=== PATIENT | female | born 1970 | race Caucasian/White ===

== ENCOUNTER 2023-10-03 06:02 | Day surgery (SDC) | payer OTHER, SELFPAY ==
[2023-10-03] VITALS (14 sets, daily range): BP systolic 103–162; BP diastolic 59–88; PULSE 94–101; RESP 14–16; TEMP 36.1–36.3; O2SAT 90–96; BMI 36.3
[2023-10-03] MEDS: MIDAZOLAM HCL 1 MG/ML inj IVP (06:06)
[2023-10-03] MEDS: fentaNYL 100 MCG/2 ML inj IVP (06:06)
[2023-10-03] MEDS: LACTATED RINGERS 1000 ML 1,000 ML 100 ML IV ×2 (07:06→09:00)
[2023-10-03] MEDS: SODIUM CHLORIDE 0.9 % (FLUSH) 10 ML SYRINGE IVF (07:06)
--- NOTE | 2023-10-03 07:12 | W.PM.H&PU ---
History & Physical Update History & Physical Update H&P Reviewed and patient assessed: No changes noted
--- NOTE | 2023-10-03 07:25 | W.PM.NB ---
Nerve Block Nerve Block Time Seen by Provider: 07:20 Date Seen: 10/03/23 Type of block requested by surgeon for post-operative analgesia: popliteal Side: right Time out performed: Yes Verification of patient name: Yes Verification of date of : Yes Site marking: site marked Name of person performing procedure: Mario Continuous monitoring Was continuous monitoring of O2 sat, B/P, quality control industrial engineer, recorded every 15 minutes?: Yes Procedure Checklist: sterile prep, needles and gloves Ultrasound guided. Images saved: Yes Medications given in 5ml increments after negative aspiration: Ropivicaine %: 0.5 mL: 20 Needle gauge: 22 Patient tolerated procedure well: Yes Additional comments: Needle noted adjacent to nerve Block Charges Block Charge (with Pro Fee): Sciatic Nerve Use of Ultrasound Machine for Block: Yes- US Guidance/pain block
--- NOTE | 2023-10-03 07:26 | W.PM.NB ---
Nerve Block Nerve Block Time Seen by Provider: 07:20 Date Seen: 10/03/23 Type of block requested by surgeon for post-operative analgesia: adductor canal Side: right Time out performed: Yes Verification of patient name: Yes Verification of date of : Yes Site marking: site marked Name of person performing procedure: Mario Continuous monitoring Was continuous monitoring of O2 sat, B/P, nurse monitoring, recorded every 15 minutes?: Yes Procedure Checklist: sterile prep, needles and gloves Ultrasound guided. Images saved: Yes Medications given in 5ml increments after negative aspiration: Ropivicaine %: 0.5 mL: 20 Needle gauge: 20 Patient tolerated procedure well: Yes Additional comments: Needle noted adjacent to nerve Block Charges Block Charge (with Pro Fee): Femoral Nerve Use of Ultrasound Machine for Block: Yes- US Guidance/pain block
--- NOTE | 2023-10-03 07:26 | W.ANESCHARGE ---
Anesthesia Charges Start Date/Time Anesthesia Start Date: 10/03/23 Anesthesia Start Time: 07:33 Stop Date/Time Anesthesia Stop Date: 10/03/23 Anesthesia Stop Time: 10:19
--- NOTE | 2023-10-03 07:30 | XR_ITS ---
Patient: MARII GAR Facility:?[facility] Patient ID:?[id number] Site Patient ID:?[id number]. Site :?[id number] Study:?XRay-Extremity Right ANKLE-10/03/2023 9:25:12 AM Ordering Physician:DREW Final Report: Indication: ORIF Technique: 4 fluoroscopic images of the right ankle. Fluoroscopic time 24.6 seconds. IMPRESSION: Fluoroscopic guidance for open reduction internal fixation of fractures involving the medial malleolus and lateral malleolus. Fracture of the posterior malleolus again noted. Dictated by Jaime Felix MD @ 10/03/2023 11:00:28 AM Signed by:?Jaime Felix MD @10/03/2023 11:00:28 AM (Electronic Signature)
--- NOTE | 2023-10-03 07:33 | SUR.PREOP ---
TIME?OUT:?0717 PT/RN/MDA?VERIFICATION?OF?SURGICAL?SITE,?PROCEDURE,?AND?CONSENT OBTAINED?PRIOR?TO?INVASIVE?PROCEDURE.
[2023-10-03] MEDS: CEFAZOLIN 2 GM INJ IVP (07:50)
--- NOTE | 2023-10-03 09:41 | PM.ORPRC ---
Procedure Note Date of procedure: 10/03/23 Procedure: PREOPERATIVE DIAGNOSES: 1. Right trimalleolar ankle fracture, closed, displaced POSTOPERATIVE DIAGNOSES: 1. Right trimalleolar ankle fracture, closed, displaced NAME OF OPERATION: 1. Right bimalleolar ankle fracture open reduction internal fixation SURGEON: Kris Godwin MD RECREATION TECHNICIAN: Dena Huber P.A.-C.; An video production assistant was critical for this case to aide in patient positioning, leg manipulation, tissue retraction, closure, and splinting. ANESTHESIA: Spinal plus popliteal and adductor canal regional nerve blocks. EBL: 20 mL IMPLANTS: Arthrex 2.7 mm interfragmentary screw, a distal fibular locking plate with 2.7 distal locking and 3.5mm proximal nonlocking screws for lateral malleolus fixation; cannulated 4.0 mm partially threaded screws for medial malleolar fixation. TOURNIQUET: 70 minutes at 250 mmHg INDICATIONS: The patient is a pleasant 53-year-old female who sustained a right ankle injury in the last week following a ground level fall. Workup included x-rays, which revealed an unstable trimalleolar ankle fracture. Given the unstable nature of this injury, surgery was recommended to improve alignment and stablize the ankle. Prior to surgery, the risks and benefits of the procedure were discussed with the patient, all questions were answered, and informed consent was obtained. FINDINGS: Closed, displaced medial and lateral malleoli fractures. Small, mildly displaced posterior malleolus fracture that was anatomic reduced after fixation of the medial and lateral malleoli. Stable syndesmosis. PROCEDURE: Patient was seen preoperatively and operative site was marked. Regional nerve blocks was performed by anesthesia staff. The patient was then brought to the operating room, where spinal anesthesia provided. She was then placed supine on the operating table. The operative extremity was prepped and draped in the usual sterile fashion. 2 g IV Ancef was administered preoperatively for prophylaxis. A surgical time-out was performed confirming patient identity, surgical site, and surgical procedure. The operative extremity was elevated, exsanguinated, and the tourniquet was inflated. A longitudinal incision was made along the posterior border of the distal fibula. Incision was carried through the skin and subcutaneous tissues, while protecting any crossing neurologic structures. The fracture was encountered, and cleared of interposed periosteum and fracture hematoma. Fracture site was then thoroughly irrigated with normal saline. The fracture was reduced and temporarily held with reduction clamps. A 2.7 mm interfragmentary lag screw was drilled perpendicular across the fracture. Following compression with the screw, a distal fibular locking plate was placed on the lateral malleolus and temporally held BB tacks. Fluoroscopic images confirmed anatomic reduction of the distal fibula fracture with good placement of the plate. The plate was then secured distally with 2.7 mm locking screws and proximally with 3.5 mm nonlocking screws. Fluoroscopic imaging confirmed fracture reduction, appropriate plate position, and screw length. Attention was then directed to fixation of the medial malleolar fracture. A longitudinal incision was made overlying the medial malleolar fracture. Blunt dissection was utilized to dissect through the subcutaneous tissues to allow us to protect the crossing neurovascular structures. The fracture was identified and cleared of interposed periosteum and fracture hematoma. The fracture was reduced and held with a pointed reduction clamp. Two guide pins for the 4-0 cannulated screws were then drilled in a retrograde fashion across the fracture site. Fluoroscopic imaging confirmed anatomic reduction of the fracture and good placement of the pins. The pins were then overdrilled and partially-threaded 4.0 mm cannulated screws were secured into position over the pins. Guide pins were removed . Fluoroscopic imaging confirmed anatomic reduction with good compression and good placement of the screws. After confirming appropriate reduction and positioning of the plate and screws using fluoroscopic imaging, an external rotation stress was placed on the ankle to test for syndesmosis stability. These images confirmed a symmetric mortise with no widening of the syndesmosis. At this stage, the wounds were thoroughly irrigated with normal saline. Laterally , deep fascia was closed over the plate using 3-0 Vicryl [id number] interrupted sutures. The tourniquet was then released. Total tourniquet time was 78 minutes. Hemostasis was achieved electrocautery. Skin incisions were then closed with 3-0 Vicryl inverted interrupted subcutaneous stitches followed by running 3-0 nylon. Sterile dressings were applied and a well-padded short-leg splint was applied. The patient was awoken from anesthesia and transferred to the PACU in stable condition. PLAN: 1. Ice and elevation of operative extremity for pain and swelling. 2. Tylenol or Mose[place] as needed for pain. 3. Toe-touch weight-bearing operative extremity. 4. Keep splint clean and dry. 5. Follow up in Orthopedic Clinic in 10-14 days for wound check and splint removal.
--- NOTE | 2023-10-03 10:21 | W.ANESCHARGE ---
Anesthesia Charges Start Date/Time Anesthesia Start Date: 10/03/23 Anesthesia Start Time: 07:33 Stop Date/Time Anesthesia Stop Date: 10/03/23 Anesthesia Stop Time: 10:19
== END 2023-10-03 11:50 | disposition home or self-care (01) ==
PROVIDERS: Visit Provider Orthopaedic Surgery
PROC: (CPT 27814; principal; 2023-10-03 07:30)
DX: S82.851A Displaced trimalleolar fracture of right lower leg, initial encounter for closed fracture (principal); G89.18 Other acute postprocedural pain
CPT/HCPCS: 27814; 01480; 64445; 64447; 73610; 76000; 76942; 82962; C1713; J0690; J1100; J2250; J2371; J2405; J2704; J2795; J3010; J3490; J7120

== ENCOUNTER 2023-11-05 12:23 | Outpatient (CLI) | payer OTHER, SELFPAY ==
[2023-11-05 12:43] LABS: Basophils Percent Auto 0.2 % (0.0-3.0); Eosinophils Percent Auto 0.6 % (0.0-7.0); Hematocrit 44.6 % (33.0-51.0); Hemoglobin* 13.6 gm/dL (12.0-16.0); Immature Granulocytes Pct Auto 0.2 %; Lymphocytes Percent Auto 19.7 % (20-44); Mean Corpuscular HGB Conc 31 gm/dL (32-36); Mean Corpuscular Hemoglobin 25 pg (26-34); Mean Corpuscular Volume 83 fL (80-100); Monocytes Percent Auto 7.5 % (0.0-11.0); Neutrophils Percent Auto 71.8 % (42.0-72.0); Platelet Count* 425 K/uL (140-440); RDW Coefficient of Variation % 15.5 % (11.5-15.5); Red Blood Count 5.35 m/uL (4.00-5.20); White Blood Count* 18.44 K/uL (4.50-11.00)
[2023-11-05 12:51] LABS: Slide Review Reflex No
[2023-11-05 12:58] LABS: Chloride* 105 mmol/L (96-114); Potassium* 3.9 mmol/L (3.6-5.1); Sodium* 141 mmol/L (135-149)
[2023-11-05 13:00] LABS: Creatinine* 0.9 mg/dL (0.5-1.5); Estimated Glomerular Filt Rate 77 ml/min
[2023-11-05 13:01] LABS: Anion Gap 12 mEq/L (7-15); Blood Urea Nitrogen* 19 mg/dL (7-30); Calcium* 9.9 mg/dL (8.4-10.6); Carbon Dioxide* 24 mmol/L (20-32); Glucose* 181 mg/dL (60-115)
[2023-11-05 13:03] LABS: Hemoglobin A1C* 6.9 % (0-5.6)
[2023-11-05 13:12] LABS: C Reactive Protein* < 0.5 mg/dL (0.5-1.0)
[2023-11-05 13:42] LABS: Erythrocyte SedimentationRate* 34 mm/hr (2-20)
== END 2023-11-05 12:24 | disposition home or self-care (01) ==
LOC: LAB 12:25
PROVIDERS: Visit Provider Physician Assistant Surgical
DX: Z01.818 Encounter for other preprocedural examination (principal); L03.115 Cellulitis of right lower limb; I10 Essential (primary) hypertension; E78.00 Pure hypercholesterolemia, unspecified; E03.9 Hypothyroidism, unspecified; E11.9 Type 2 diabetes mellitus without complications
CPT/HCPCS: 36415; 80048; 83036; 85025; 85651; 86140

== ENCOUNTER 2023-11-06 10:05 | Day surgery (SDC) | payer OTHER, SELFPAY ==
[2023-11-06] VITALS (16 sets, daily range): BP systolic 105–152; BP diastolic 66–115; PULSE 83–102; RESP 14–16; TEMP 36.6–37; O2SAT 85–99; BMI 34.9
[2023-11-06] MEDS: LACTATED RINGERS 1000 ML 1,000 ML 100 ML IV (10:57)
[2023-11-06] MEDS: SODIUM CHLORIDE 0.9 % (FLUSH) 10 ML SYRINGE IVF (10:58)
--- NOTE | 2023-11-06 11:04 | SUR.OPER ---
PATIENT QUESTIONS ANSWERED SATISFACTORILY PREOPERATIVELY. PATIENT BROUGHT TO OR #2 PER CART. Patient positioned supine on OR #2 bed. The perioperative team supported arms bilaterally on arm boards. Final approval of positioning by surgeon.
--- NOTE | 2023-11-06 11:42 | W.PM.H&PU ---
History & Physical Update History & Physical Update H&P Reviewed and patient assessed: No changes noted
--- NOTE | 2023-11-06 11:43 | PM.ORPRC ---
Procedure Note Date of procedure: 11/06/23 Procedure: PREOPERATIVE DIAGNOSIS: 1. Right ankle postoperative wound infection POSTOPERATIVE DIAGNOSIS: 1. Right ankle postoperative wound infection PROCEDURE: 1. Right ankle irrigation and debridement SURGEON: Kris Godwin MD. MULTI MEDIA SPECIALIST: CITLALI Villalta - An assistant account manager was critical for this case to aid in patient positioning, tissue retraction, limb manipulation/positioning, and closure. ANESTHESIA: Spinal anesthetic IMPLANTS: None TOURNIQUET: 8 minutes at 250 mmHg ESTIMATED BLOOD LOSS: 10 mL COMPLICATIONS: None SPECIMENS: Subcutaneous wound swabs and subcutaneous soft tissue which were sent for Gram stain, anaerobic and aerobic cultures. INDICATIONS: The patient is a 53-year-old female with past medical history significant for diabetes who underwent right ankle open reduction internal fixation on 10/03/2023. She did well postoperatively until 3 days ago when she developed increasing right ankle pain and noticed some drainage from the lateral aspect of her ankle near the surgical incision. Pain was associated with increased swelling, warmth, and redness. She was seen in clinic yesterday, where symptoms were felt to be secondary to a postoperative wound infection. Recommendation was subsequently made for surgical intervention consisting of right ankle irrigation and debridement. FINDINGS: Small amount of purulent drainage from a sinus tract in the distal 3rd of the incision which communicated with the distal fibula plate. There was no obvious subcutaneous abscess and no tracking anterior, posterior, distal proximally. DESCRIPTION OF PROCEDURE: Following a thorough discussion of risks, benefits, and alternatives consent was obtained and the operative site was marked. The patient was brought to the operating room and spinal anesthesia was administered. She was then placed in supine position on the OR table. The operative permit he was prepped and draped in appropriate sterile fashion. Surgical time-out was performed confirming patient identity, surgical site, surgical procedure. An incision measuring approximately 4-5 cm centered over the small sinus tract was made using the previous surgical scar. Upon making the incision small bloody fluid collection was encountered. This was swabbed and sent for anaerobic and aerobic cultures. Due to bleeding that was encountered making incision, leg was elevated exsanguinated and tourniquet was inflated to 250 mmHg. Subcutaneous tissue samples adjacent to the lateral fibula plate were then obtained and sent for aerobic and anaerobic cultures. Skin edges at the sinus tract were sharply debrided using a 15 blade. Subcutaneous tissues were debrided using a small rongeur and curette. The wound was then irrigated with 3 L of normal saline using pulsatile lavage. Tourniquet was released, and hemostasis was achieved with electrocautery. Skin was then closed with 3-0 nylon simple interrupted sutures and sterile dressings were applied. Patient was then awoken from anesthesia and transferred to the PACU in stable condition. POSTOPERATIVE PLAN: 1. Touchdown weight-bearing with Cam boot right lower extremity. 2. Start Doxycycline 100 mg b.i.d. 3. [place] or Tylenol as needed for pain control 4. Ice and elevation for pain and swelling 5. Follow-up in Orthopedic Clinic in 1 week for wound check.
[2023-11-06] MEDS: CEFAZOLIN 2 GM INJ IVP (12:17)
[2023-11-06] MEDS: fentaNYL 100 MCG/2 ML inj 50 MCG IVP ×3 (13:11→13:34)
[2023-11-06] MEDS: ALBUTEROL SULFATE 2.5 MG/3 ML VIAL.NEB NEB (14:15)
--- NOTE | 2023-11-06 14:24 | W.ANESCHARGE ---
Anesthesia Charges Start Date/Time Anesthesia Start Date: 11/06/23 Anesthesia Start Time: 11:40 Stop Date/Time Anesthesia Stop Date: 11/06/23 Anesthesia Stop Time: 12:58
[2023-11-06] MEDS: HYDROCODONE-ACETAMIN 5-325 MG 1 TAB PO (14:30)
--- NOTE | 2023-11-06 15:12 | SUR.PHASEII ---
right lower extremity covered with dressing and woody wrap. c/d/i.
== END 2023-11-06 15:16 | disposition home or self-care (01) ==
PROVIDERS: Visit Provider Orthopaedic Surgery
PROC: (CPT 11042; principal; 2023-11-06 11:30)
DX: T81.41XA Infection following a procedure, superficial incisional surgical site, initial encounter (principal); E11.9 Type 2 diabetes mellitus without complications
CPT/HCPCS: 11042; 01470; 82962; 87070; 87075; 87186; 87205; 94640; A9270; J0690; J1100; J2250; J2405; J2704; J3010; J3490; J7120

== ENCOUNTER 2024-03-19 08:25 | Outpatient (CLI) | payer OTHER, SELFPAY ==
[2024-03-19 09:42] LABS: Creatinine* 0.7 mg/dL (0.5-1.5); Estimated Glomerular Filt Rate 104 ml/min
== END 2024-03-19 08:26 | disposition home or self-care (01) ==
PROVIDERS: Visit Provider Physician Assistant Surgical
DX: Z98.890 Other specified postprocedural states (principal); Z87.81 Personal history of (healed) traumatic fracture; Z09 Encounter for follow-up examination after completed treatment for conditions other than malignant neoplasm
CPT/HCPCS: 82565; 87070; 87075; 87186; 87205

== ENCOUNTER 2024-03-19 09:52 | Outpatient (CLI) | payer OTHER, SELFPAY ==
--- NOTE | 2024-03-19 10:00 | CRLHL7_ITS ---
For Patients: As a result of the Century Cures Act, medical imaging exams and procedure reports are released immediately into your electronic medical record. You may view this report before your referring provider. If you have questions, please contact your health care provider. Indication: 3 RECENT ANKLE SURGIES, R/O Abscess,INFECTION OR FLUID COLLECTIONS Technique: RIGHT ANKLE WITH ISOVUE 370 95CC CONTRAST Please note that all CT scans at this facility use dose modulation, iterative reconstruction, and/or weight-based dosing when appropriate to reduce radiation dose to as low as reasonably achievable. Comparison: Radiographs 12/02/2023, 10/03/2023 Findings: Chronic trimalleolar fracture deformity noted. Near complete bridging of the posterior malleolus fracture is present with some residual step-off at the tibiotalar articular surface measuring 1.1 millimeter. Near anatomic alignment of the fibular diaphyseal fracture with intact hardware. Residual fracture line is present. Healed medial malleolus fracture. Soft tissue swelling is present at the lateral and medial aspects of the ankle. No drainable fluid collection. No subcutaneous gas. The tendons appear intact. Impression: Chronic trimalleolar fracture of the ankle with incomplete osseous bridging across the distal fibular fracture and posterior malleolus fracture. Slight articular surface step-off at the posterior malleolus fracture. Hardware intact. Alignment near anatomic. Soft tissue swelling about the medial and lateral aspects of the ankle without drainable fluid collection, abscess or osteomyelitis. No synovitis. Please note that all CT scans at this facility use dose modulation, iterative reconstruction, and/or weight-based dosing when appropriate to reduce radiation dose to as low as reasonably achievable. Dictated by Jaime Felix MD @ 03/19/2024 12:14:14 PM (Electronically Signed)
== END 2024-03-19 09:53 | disposition home or self-care (01) ==
LOC: CT 09:55
PROVIDERS: Visit Provider Physician Assistant Surgical
DX: Z87.81 Personal history of (healed) traumatic fracture (principal); S82.851G Displaced trimalleolar fracture of right lower leg, subsequent encounter for closed fracture with delayed healing; Z98.890 Other specified postprocedural states
CPT/HCPCS: 73701; Q9967

== ENCOUNTER 2024-03-22 06:04 | Day surgery (SDC) | payer OTHER, SELFPAY ==
[2024-03-22] VITALS (14 sets, daily range): BP systolic 92–142; BP diastolic 62–105; PULSE 92–103; RESP 13–25; TEMP 36.2–37; O2SAT 90–97
[2024-03-22] MEDS: LACTATED RINGERS 1000 ML 1,000 ML 100 ML IV (06:40)
[2024-03-22] MEDS: INSULIN REGULAR, HUMAN 100 UNIT/ML VIAL 6 UNIT SUBCUT (06:45)
[2024-03-22] MEDS: CEFAZOLIN 2 GM INJ IVP (07:26)
--- NOTE | 2024-03-22 08:15 | PM.ORPRC ---
Procedure Note Date of procedure: 03/22/24 Procedure: PREOPERATIVE DIAGNOSIS: Infected, healed Right ankle Askew B trimalleolar fracture POSTOPERATIVE DIAGNOSIS: Infected, healed Right ankle Askew B trimalleolar fracture NAME OF OPERATION: Incision and drainage, hardware removal deep SURGEON: Jordan Hess MD PRISON CLASSIFICATION COUNSELOR: Annemarie Mccall PA-C ANESTHESIA: Spinal ESTIMATED BLOOD LOSS: 0 mL COMPLICATIONS: None SPECIMENS: Aerobic, anaerobic cultures x2, Gram stain x2 DRAINS: None PREOPERATIVE ANTIBIOTICS: Ancef 2 gram INDICATIONS: The patient is a 53-year-old female who sustained a right ankle fracture. This has healed, however she has developed a MSSA deep infection. She presents today for incision and drainage, hardware removal. The risks, benefits and expected outcomes were discussed in detail. These included but were not limited to: Infection, bleeding, injury to blood vessel or nerve, venous thromboembolism. All questions were answered to their satisfaction. Use of an anesthesiology physician assistant was necessary throughout the case for patient positioning and safety, soft tissue retraction and closure. PROCEDURE: The patient was placed supine on the operating room table. Spinal anesthesia was administered. The right lower extremity was prepped and draped in the usual sterile fashion. The limb was exsanguinated with the Maikel bandage. The pneumatic tourniquet was inflated to 300 mmHg. The previously placed longitudinal incision was made over the fibula. Subcutaneous dissection taken sharply to the fibula/plate which was subperiosteal exposed. The anesthesiology physician assistant was used to retract the soft tissues and protect them. Gross purulence was encountered. Two separate cultures were taken. The 2 most proximal screws were loose in the bone. The 3rd proximal cortical screw was removed as well. All 5 of the distal locking screws were removed. Finally, we expose the tip of the lag screw over the anterior aspect of the fibula. We were unable to find the head posteriorly. Therefore, we pulled it out of the bone from anteriorly. We then aggressively debrided the periosteum, bone and purulence on the surface of the fibula and in every screw hole with the curette, joker elevator and Randy rongeur. There was no evidence for osteomyelitis. The wound was irrigated with 3 L of normal saline via pulse lavage. It was closed with 3-0 nylon in an interrupted fashion. A soft dressing was applied. The tourniquet was released. Sponge and needle counts were correct x 2. The patient tolerated the procedure well. There were no apparent complications. They were carefully transferred to the hospital bed and taken to the postanesthesia care unit in satisfactory condition. PLAN: The patient will be discharged to home. They may weightbear as tolerates on the right lower extremity. They will continue to work on ice and elevation. They will follow up in the office next week for a wound check and three views of the ankle prior to being seen. Preop cultures have grown out pansensitive Staph aureus. We are planning 2 weeks of p.o. Keflex. She may need the wound clinic, depending on how her wound looks in the next 1-2 weeks.
--- NOTE | 2024-03-22 08:23 | SUR.OPER ---
THE SURGEON AND THE PA REMOVED ONE PLATE AND NINE SCREWS (ALL ARTHREX) FROM THE PATIENT'S RIGHT (LATERAL) ANKLE.
[2024-03-22] MEDS: fentaNYL 100 MCG/2 ML inj 50 MCG IVP ×2 (08:41→08:49)
--- NOTE | 2024-03-22 08:49 | W.ANESCHARGE ---
Anesthesia Charges Start Date/Time Anesthesia Start Date: 03/22/24 Anesthesia Start Time: 07:13 Stop Date/Time Anesthesia Stop Date: 03/22/24 Anesthesia Stop Time: 08:39
[2024-03-22] MEDS: HYDROmorphone 0.5 mg/0.5 ml inj IVP (08:57)
--- NOTE | 2024-03-22 09:14 | W.ANESCHARGE ---
Anesthesia Charges Start Date/Time Anesthesia Start Date: 03/22/24 Anesthesia Start Time: 07:13 Stop Date/Time Anesthesia Stop Date: 03/22/24 Anesthesia Stop Time: 08:39
--- NOTE | 2024-03-22 09:18 | SUR.PHASEI ---
patient met discharge criteria per anesthesia
[2024-03-22] MEDS: OxyCODONE/APAP 5-325 TABLET 2 TAB PO (09:28)
[2024-03-22] MEDS: INSULIN REGULAR, HUMAN 100 UNIT/ML VIAL SUBCUT (09:57)
== END 2024-03-22 10:25 | disposition home or self-care (01) ==
PROVIDERS: Visit Provider Orthopaedic Surgery
PROC: (CPT 11044; principal; 2024-03-22 07:15)
DX: T84.624A Infection and inflammatory reaction due to internal fixation device of right fibula, initial encounter (principal); B95.61 Methicillin susceptible Staphylococcus aureus infection as the cause of diseases classified elsewhere; E11.9 Type 2 diabetes mellitus without complications
CPT/HCPCS: 11044; 20680; 01480; 82962; 87070; 87075; 87186; 87205; A9270; J0690; J1100; J1170; J1815; J2250; J2371; J2405; J2704; J3010; J7120

== ENCOUNTER 2024-03-29 15:55 | Inpatient (IN) | payer OTHER, SELFPAY ==
[2024-03-29 16:19] VITALS: BP 86/62; PULSE 102; RESP 18; TEMP 36.9; O2SAT 93; BMI 35.6
[2024-03-29 16:45] VITALS: BP 108/58
[2024-03-29 17:49] LABS: Lactate* 1.7 mmol/L (0.5-1.9)
[2024-03-29 17:51] LABS: Basophils Absolute Auto 0.04 K/uL (0.00-0.30); Basophils Percent Auto 0.4 % (0.0-3.0); Eosinophils Absolute Auto 0.46 K/uL (0.00-0.50); Eosinophils Percent Auto 4.4 % (0.0-7.0); Hematocrit 36.3 % (33.0-51.0); Immature Granulocytes Abs Auto 0.06 K/uL (0.00-0.30); Immature Granulocytes Pct Auto 0.6 %; Lymphocytes Absolute Auto 3.82 K/uL (0.90-2.90); Lymphocytes Percent Auto 36.5 % (20-44); Mean Corpuscular HGB Conc 30 gm/dL (32-36); Mean Corpuscular Hemoglobin 24 pg (26-34); Mean Corpuscular Volume 78 fL (80-100); Monocytes Percent Auto 8.6 % (0.0-11.0); Neutrophils Absolute Auto 5.18 K/uL (1.7-7.0); Neutrophils Percent Auto 49.5 % (42.0-72.0); Platelet Count* 310 K/uL (140-440); RDW Coefficient of Variation % 15.5 % (11.5-15.5); Red Blood Count 4.63 m/uL (4.00-5.20); White Blood Count* 10.46 K/uL (4.50-11.00)
[2024-03-29 17:53] LABS: Slide Review Reflex No
--- NOTE | 2024-03-29 17:56 | CRLHL7_ITS ---
For Patients: As a result of the Cures Act, medical imaging exams and procedure reports are released immediately into your electronic medical record. You may view this report before your referring provider. If you have questions, please contact your health care provider. INDICATION: Sepsis. TECHNIQUE: Chest 2 views. COMPARISON: None. FINDINGS: Cardiovascular and mediastinum: Heart size and vasculature are normal in caliber and appearance. Lungs and pleural spaces: Lungs are clear. No sign of infiltrate or mass. No sign of pleural effusion. No pneumothorax. Bones and soft tissues: No significant findings. IMPRESSION: No acute or significant findings. Dictated by Ankit Gamino MD @ 03/29/2024 7:18:17 PM (Electronically Signed)
[2024-03-29] MEDS: INSULIN ASPART 100 UNIT/ML 12 UNIT SUBCUT (17:58)
[2024-03-29] MEDS: INSULIN ASPART 100 UNIT/ML SUBCUT (17:58)
[2024-03-29] MEDS: VANCOMYCIN 2 GM/400 ML 2 GM/400 ML PIGGYBACK IVPB (18:01)
[2024-03-29 18:06] LABS: Chloride* 105 mmol/L (96-114); Potassium* 4.2 mmol/L (3.6-5.1); Sodium* 136 mmol/L (135-149)
[2024-03-29 18:09] LABS: Creatinine* 0.9 mg/dL (0.5-1.5); Est. Creatinine Clearance* 71.11; Estimated Glomerular Filt Rate 77 ml/min
[2024-03-29 18:10] LABS: Anion Gap 8 mEq/L (7-15); Blood Urea Nitrogen* 15 mg/dL (7-30); Calcium* 8.7 mg/dL (8.4-10.6); Carbon Dioxide* 23 mmol/L (20-32); Glucose* 190 mg/dL (60-115)
[2024-03-29 18:13] LABS: C Reactive Protein* 1.3 mg/dL (0.5-1.0)
--- NOTE | 2024-03-29 18:24 | PM.IMHP1 ---
Hospitalist- H&P: HPI History of Present Illness Time Seen by Provider: 16:00 Date Seen: 03/29/24 Chief complaint: Direct Admit Narrative: Kelly Grijalva is a 53 year old female with coronary artery disease, COPD, poorly controlled diabetes mellitus type 2, hypertension, hypercholesterolemia, PTSD, anxiety who is admitted directly from home after being seen in the [facility] today. She had a right by malleolar ankle fracture on 10/03/2023 after tripping while taking the trash out. She underwent an ORIF at that time. She developed a postop infection and had irrigation and debridement debridement on 10/29/2023 and was treated with oral antibiotics. She had recurrent infection and underwent another I and D and hardware removal by Dr. Hess 03/22/2024. She has been on Keflex 4 times a day since then. She has had ongoing purulence drainage, but felt that it got even worse over the weekend and went to the [facility]. She was given Unasyn and followed up with Dr. Kris Godwin in his clinic today. He recommended direct admission to the hospital and initiation of IV antibiotics with a plan to go to the OR tomorrow for repeat irrigation and debridement. She has pain in that ankle for which she has been taking 1 tablet of Percocet 3 times a day. She denies any fevers or chills, but does endorse night sweats. Review of Systems Status of ROS: Reports: 10 or more systems reviewed and unremarkable except as noted in History and below [facility] Medical History (Updated 03/29/24 @ 22:13 by Louann Farmer MD) Thyroid nodule ?E04.1 - Nontoxic single thyroid nodule (ICD-10) Hypokalemia ?E87.6 - Hypokalemia (ICD-10) Hypomagnesemia ?E83.42 - Hypomagnesemia (ICD-10) Coronary artery disease ?I25.10 - Atherosclerotic heart disease of [place] coronary artery without angina pectoris (ICD-10) NSTEMI (non-ST elevated myocardial infarction) ?I21.4 - Non-ST elevation (NSTEMI) myocardial infarction (ICD-10) Vitamin D deficiency ?E55.9 - Vitamin D deficiency, unspecified (ICD-10) Nephrolithiasis ?N20.0 - Calculus of kidney (ICD-10) Menopause syndrome ?N95.1 - Menopausal and female climacteric states (ICD-10) Personality disorder, unspecified ?F60.9 - Personality disorder, unspecified (ICD-10) Drug-seeking behavior ?Z76.5 - Malingerer [conscious simulation] (ICD-10) Moderate recurrent major depression ?F33.1 - Major depressive disorder, recurrent, moderate (ICD-10) Gastritis ?K29.70 - Gastritis, unspecified, without bleeding (ICD-10) Panic disorder with agoraphobia ?F40.01 - Agoraphobia with panic disorder (ICD-10) Episodic cannabis use ?F12.90 - Cannabis use, unspecified, uncomplicated (ICD-10) Fatigue ?R53.83 - Other fatigue (ICD-10) High risk HPV infection ?B97.7 - Papillomavirus as the cause of diseases classified elsewhere (ICD-10) Severe dysplasia of cervix ?D06.9 - Carcinoma in situ of cervix, unspecified (ICD-10) Ankle fracture, bimalleolar, closed ?S82.843A - Displaced bimalleolar fracture of unspecified lower leg, initial encounter for closed fracture (ICD-10) Migraine headache ?G43.909 - Migraine, unspecified, not intractable, without status migrainosus (ICD-10) PTSD (post-traumatic stress disorder) ?F43.10 - Post-traumatic stress disorder, unspecified (ICD-10) Restless leg syndrome ?G25.81 - Restless legs syndrome (ICD-10) Anxiety ?F41.9 - Anxiety disorder, unspecified (ICD-10) Depression ?F32.A - Depression, unspecified (ICD-10) Elevated cholesterol ?E78.00 - Pure hypercholesterolemia, unspecified (ICD-10) COPD (chronic obstructive pulmonary disease) ?J44.9 - Chronic obstructive pulmonary disease, unspecified (ICD-10) Hypothyroid ?E03.9 - Hypothyroidism, unspecified (ICD-10) Hypertension ?I10 - Essential (primary) hypertension (ICD-10) Diabetes mellitus ?E11.9 - Type 2 diabetes mellitus without complications (ICD-10) Surgical History (Updated 03/29/24 @ 22:07 by Louann Farmer MD) H/O lithotripsy ?Z98.890 - Other specified postprocedural states (ICD-10) H/O coronary angiogram ?Z98.890 - Other specified postprocedural states (ICD-10) History of incision and drainage (11/06/23) ?Z98.890 - Other specified postprocedural states (ICD-10) Status post open reduction with internal fixation (ORIF) of fracture of ankle (10/03/23) ?Z98.890 - Other specified postprocedural states (ICD-10) ?Z87.81 - Personal history of (healed) traumatic fracture (ICD-10) H/O tubal ligation ?Z98.51 - Tubal ligation status (ICD-10) History of cholecystectomy ?Z90.49 - Acquired absence of other specified parts of digestive tract (ICD-10) H/O lumbar discectomy ?Z98.890 - Other specified postprocedural states (ICD-10) Family History (Updated 03/29/24 @ 16:29 by Louann Farmer MD) Mother Ovarian cancer, Onset Age: 39 Social History (Updated 03/29/24 @ 22:06 by Louann Farmer MD) Narrative: Not , 2 grown children, son is in prison in [place] [employer]. Sister and her best friend are helping her out around the house. Quit tob in sep 2023. Denies alcohol use. Smokes a joint once a night before bed. What is your current living situation?: I presently have a place to live Problems where you live: no known problems Problems where you live details: N/A In the past 12 months, utilities in danger of being shut off: no In past 12 months, lack of transportation kept you from medical appts, meetings, work, or getting things needed for daily living: no In the past 12 mos, have been you worried that your food would run out before you had money to buy more?: never true In the past 12 mos, the food you bought just didn't last and you didn't have money to buy more?: never true Highest level of school completed/degree received: GED or equivalent Smoking Status: Former smoker What tobacco products do you use: cigarettes Smoking packs per day: 0.5 Smoking cigarettes per day: 10.0 Years smoked: 15 Smoking pack-years: 7.50 Smoking quit date/years: <= 15 years ago Do you use any of these nicotine containing products: None How often do you have a drink containing alcohol: never AUDIT-C Alcohol total score: 0 Non-prescribed substance use: marijuana (any form) Non-prescribed substance use details: daily Caffeine: Yes (pop) How often does anyone, including family, friends and others, physically hurt you: never How often does anyone, including family, friends and others, insult or talk down to you: never How often does anyone, including family, friends and others, threaten you with harm: never How often does anyone, including family, friends and others, scream or curse at you: never Are you using contraception or practicing any form of control: No (tubes tied) service: No Meds Home Medications and Allergies Home Medications ?Medication ?Instructions ?Recorded ?Confirmed ?Type atorvastatin 80 mg tablet 80 mg PO HS 10/01/23 03/29/24 History fluoxetine 40 mg capsule 40 mg PO BID 10/01/23 03/29/24 History glimepiride 4 mg tablet 8 mg PO DAILY 10/01/23 03/29/24 History hydroxyzine pamoate 100 mg capsule 100 mg PO TID PRN 10/01/23 03/29/24 History lamotrigine 200 mg tablet 400 mg PO DAILY 10/01/23 03/29/24 History (Lamictal) lisinopril 5 mg tablet 5 mg PO DAILY 10/01/23 03/29/24 History pantoprazole 40 mg tablet,delayed 40 mg PO DAILY 10/01/23 03/29/24 History release (Protonix) prazosin 1 mg capsule (Minipress) 1 mg PO HS 10/01/23 03/29/24 History prazosin 5 mg capsule (Minipress) 5 mg PO HS 10/01/23 03/29/24 History aspirin 81 mg tablet,delayed 81 mg PO DAILY 10/03/23 03/29/24 History release (Adult Aspirin Regimen) dextroamphetamine-amphetamine 30 1 tab PO BID 10/29/23 03/29/24 History mg tablet insulin aspart U-100 100 unit/mL 12 unit subcut TIDWM 10/29/23 03/29/24 History subcutaneous solution (Novolog U-100 Insulin aspart) insulin glargine 100 unit/mL (3 32 unit subcut HS 10/29/23 03/29/24 History mL) subcutaneous pen (Basaglar KwikPen U-100 Insulin) insulin syringe-needle U-100 1 mL #10 ea 10/29/23 03/29/24 History 31 gauge x 5/16 (BD Insulin Syringe Ultra-Fine) nitroglycerin 0.4 mg sublingual 0.4 mg sublingual Q5M PRN 10/29/23 03/29/24 History tablet nystatin 100,000 unit/gram topical 1 applic topical 3XD 10/29/23 03/29/24 History powder potassium chloride 10 mEq 10 meq PO DAILY 10/29/23 03/29/24 History tablet,extended release ropinirole 3 mg tablet 3 mg PO HS 10/29/23 03/29/24 History risperidone 3 mg tablet 3 mg PO HS 11/26/23 03/29/24 History albuterol sulfate 90 mcg/actuation 2 inh inhalation QID PRN 03/29/24 03/29/24 History aerosol inhaler (Ventolin HFA) magnesium oxide 400 mg (241.3 mg 400 mg PO BID 03/29/24 03/29/24 History magnesium) tablet oxycodone 5 mg tablet 5 mg PO Q6H PRN 03/29/24 03/29/24 History Allergies Allergy/AdvReac Type Severity Reaction Status Date / Time adhesive tape Allergy Verified 03/29/24 13:04 cyclobenzaprine Allergy Verified 03/29/24 13:04 [From Flexeril] ibuprofen Allergy Verified 03/29/24 13:04 ketorolac [From Toradol] Allergy Verified 03/29/24 13:04 methocarbamol [From Robaxin] Allergy Verified 03/29/24 13:04 naproxen Allergy Verified 03/29/24 13:04 omeprazole [From Prilosec] Allergy Verified 03/29/24 13:04 Penicillins Allergy Rash Verified 03/29/24 21:14 Sulfa (Sulfonamide Allergy Verified 03/29/24 13:04 Antibiotics) Exam Narrative: Exam Narrative: General: No acute distress. Awake alert oriented x3. Morbidly obese. HEENT: Normocephalic atraumatic, pupils equally round and reactive to light and accommodation. Oropharynx clear. Mucous membranes are moist. No cervical lymphadenopathy, thyromegaly or carotid bruits. No JVD. Cardiovascular: Regular rate and rhythm. No murmurs, gallops, or rubs. Chest: No increased work of breathing. Clear to auscultation bilaterally. No crackles or wheezes. Abdomen: Bowel sounds present. Soft, nondistended, nontender. No hepatosplenomegaly or masses. Extremities: Right ankle bandage was removed. There is calor, mild edema and erythema surrounding the surgical wound. The wound has dehisced and there is serous in purulence drainage noted on the Telfa pad. Area is also tender. No other edema, no cyanosis or clubbing. Skin: No jaundice, no pallor, no rashes. Const: Vital Signs, click to edit/add: Vital Signs - 24 hr 03/29/24 16:19 03/29/24 16:45 Temperature 98.5 F Pulse Rate [Right Pulse Oximeter] 102 H Respiratory Rate 18 Blood Pressure [Ri ght Arm] 86/62 L 108/58 L Pulse Oximetry 93 Oxygen Delivery Me thod Room Air Hospitalist - H&P: Result Labs Labs: Short CBC 03/29/24 Range/Units 17:41 WBC 10.46 (4.50-11.00) K/uL Hgb 11.0 L (12.0-16.0) gm/dL Hct 36.3 (33.0-51.0) % Plt Count 310 (140-440) K/uL BMP 03/29/24 17:41 Sodium 136 Potassium 4.2 Chloride 105 Carbon Dioxide 23 BUN 15 Creatinine 0.9 Glucose 190 H Calcium 8.7 03/29/2024 EKG: Normal sinus rhythm, 90 beats per minute, nonspecific T-wave abnormality. Flattened T-waves throughout all leads. Ordering Physician: Louann Farmer M.D. Date of Service: 03/29/24 Procedure(s): XR chest 2V Accession Number(s): [id number] cc: Louann Farmer M.D.; Provider,Not a Local~ For Patients: As a result of the 21st Century Cures Act, medical imaging exams and procedure reports are released immediately into your electronic medical record. You may view this report before your referring provider. If you have questions, please contact your health care provider. INDICATION: Sepsis. TECHNIQUE: Chest 2 views. COMPARISON: None. FINDINGS: Cardiovascular and mediastinum: Heart size and vasculature are normal in caliber and appearance. Lungs and pleural spaces: Lungs are clear. No sign of infiltrate or mass. No sign of pleural effusion. No pneumothorax. Bones and soft tissues: No significant findings. IMPRESSION: No acute or significant findings. Dictated by Ankit Gamino MD @ 03/29/2024 7:18:17 PM (Electronically Signed) Assessment and Plan Assessment and plan (1) Wound abscess: Problem comment: - Right lateral ankle - 10/03/23 Right bimalleolar ankle fracture open reduction internal fixation, Dr. Godwin - 11/06/23 irrigation and debridement, oral antibiotics - 03/22/24 I&D, hardware removal, started oral Keflex - 03/28/24 persistent pain and purulent discharge, received Unasyn in [facility] - 03/29/24 persistent pain and discharge. White blood count 10.4, CRP 1.3, planning OR tomorrow for washout with Dr. Kris Godwin. BP low (patient is asymptomatic with this), and HR is mildly elevated. No other indicators of sepsis. All previous cultures grew out MSSA, including the 1 from last week. Will obtain blood cultures and start Zosyn and vancomycin. Patient previously had rash with penicillins and has multiple other drug allergies. Monitor while giving Zosyn. Status: Acute (2) Status post open reduction with internal fixation (ORIF) of fracture of ankle: Problem comment: - Right bimalleolar ankle fracture open reduction internal fixation, Dr. Godwin, 10/03/2023 - 11/06/23 irrigation and debridement Status: Acute (3) Diabetes mellitus: Problem comment: Type 2 Status: Acute
[2024-03-29 18:30] VITALS: PULSE 87
[2024-03-29] MEDS: 0.9 % SODIUM CHLORIDE 1000 ml 1,000 ML 2000 ML IV ×3 (18:35→21:05)
[2024-03-29] MEDS: OXYCODONE 5 MG TABLET PO ×2 (18:39→22:30)
[2024-03-29 20:00] VITALS: BP 119/64; PULSE 94; RESP 18; TEMP 36.7; O2SAT 92
[2024-03-29] MEDS: hydrOXYzine pamoate 25 MG CAPSULE 100 MG PO (20:57)
[2024-03-29] MEDS: ATORVASTATIN CALCIUM 40 MG TABLET 80 MG PO (20:57)
[2024-03-29] MEDS: PRAZOSIN HCL 1 MG CAPSULE 6 MG PO (20:58)
[2024-03-29] MEDS: FLUOXETINE HCL 20 MG CAPSULE 40 MG PO (20:58)
[2024-03-29] MEDS: risperiDONE 1 MG TABLET 3 MG PO (21:00)
[2024-03-29] MEDS: INSULIN GLARGINE,HUM.REC.ANLOG 100 UNIT/ML INSULN.PEN 20 UNIT SUBCUT (21:18)
[2024-03-29] MEDS: ROPINIROLE HCL 1 MG TABLET PO (21:18)
[2024-03-29] MEDS: PIPERACILLIN/TAZOBACTAM 3.375 GM in 0.9 % SODIUM CHLORIDE Mini-bag 100 ML IVPB (21:19)
[2024-03-29] MEDS: HYDROCORTISONE 1 % CREAM 1 APPLIC TOPICAL (21:28)
[2024-03-29 21:53] VITALS: O2SAT 93
[2024-03-29] MEDS: 0.9 % SODIUM CHLORIDE 1000 ml 1,000 ML 75 ML IV (22:30)
--- NOTE | 2024-03-29 22:56 | PC.NURSE ---
End of Shift: Patient admitted to 255. Pleasant and cooperative. Afebrile. BP 86/62 upon admit, MD aware. Dressing to right ankle changed, elevated. Rating pain in ankle up to 10/10 and PRN Oxycodone given x2. Up to bathroom with SBA. Tolerating regular diet. Blood glucose at bedtime 82, updated MD and OK to give Lantus. Snack given and BG to be checked at 0200. Fluids and antibiotics as ordered. Patient states allergy to penicillin, rash, updated MD and OK to give Zosyn and monitor. No reaction noted.
[2024-03-29 23:00] VITALS: BP 126/76; PULSE 91; PULSE 92; PULSE 94; RESP 20; TEMP 36.6; O2SAT 91; O2SAT 94
[2024-03-29 23:32] LABS: HCG Qualitative Serum* Negative (Negative)
[2024-03-30] VITALS (17 sets, daily range): BP systolic 99–168; BP diastolic 62–87; PULSE 86–100; RESP 14–24; TEMP 36.6–37.2; O2SAT 90–96
[2024-03-30] MEDS: PIPERACILLIN/TAZOBACTAM 3.375 GM in 0.9 % SODIUM CHLORIDE Mini-bag 100 ML IVPB (02:05)
[2024-03-30] MEDS: OXYCODONE 5 MG TABLET PO ×4 (04:53→20:10)
[2024-03-30] MEDS: VANCOMYCIN 1.5 GM/300 ML 1.5 GM/300 ML PIGGYBACK IVPB (06:11)
[2024-03-30 06:33] LABS: Basophils Absolute Auto 0.03 K/uL (0.00-0.30); Basophils Percent Auto 0.3 % (0.0-3.0); Eosinophils Absolute Auto 0.52 K/uL (0.00-0.50); Eosinophils Percent Auto 5.8 % (0.0-7.0); Hematocrit 34.8 % (33.0-51.0); Hemoglobin* 10.3 gm/dL (12.0-16.0); Immature Granulocytes Abs Auto 0.05 K/uL (0.00-0.30); Immature Granulocytes Pct Auto 0.6 %; Lymphocytes Absolute Auto 3.66 K/uL (0.90-2.90); Mean Corpuscular HGB Conc 30 gm/dL (32-36); Mean Corpuscular Hemoglobin 24 pg (26-34); Mean Corpuscular Volume 80 fL (80-100); Neutrophils Absolute Auto 3.86 K/uL (1.7-7.0); Neutrophils Percent Auto 43.3 % (42.0-72.0); Platelet Count* 298 K/uL (140-440); RDW Coefficient of Variation % 15.5 % (11.5-15.5); Red Blood Count 4.37 m/uL (4.00-5.20); White Blood Count* 8.92 K/uL (4.50-11.00)
[2024-03-30 06:44] LABS: Chloride* 113 mmol/L (96-114); Potassium* 4.2 mmol/L (3.6-5.1); Sodium* 139 mmol/L (135-149)
[2024-03-30 06:46] LABS: Creatinine* 0.8 mg/dL (0.5-1.5); Est. Creatinine Clearance* 79.99; Estimated Glomerular Filt Rate 89 ml/min
[2024-03-30 06:47] LABS: Anion Gap 3 mEq/L (7-15); Blood Urea Nitrogen* 10 mg/dL (7-30); Carbon Dioxide* 23 mmol/L (20-32)
[2024-03-30 06:48] LABS: Calcium* 8.3 mg/dL (8.4-10.6); Glucose* 153 mg/dL (60-115); Slide Review Reflex No
[2024-03-30 06:50] LABS: C Reactive Protein* 1.2 mg/dL (0.5-1.0)
--- NOTE | 2024-03-30 07:36 | PC.PHA ---
Vancomycin consult note: Indication for vancomycin: [RECURRENT ANKLE INFECTION POST-OP, SEPSIS?] Age: [53] Height: [170 CM] Weight: [106 KG] Most recent SCr: [0.8] Estimated CrCL: [80] Recommended dose and frequency: [1500 IV Q12H (425)] to obtain an estimated AUC/ABHINAV of 400-600 mcg*hr/m Additional comment: [ALSO ON ZOSYN, I AND D TODAY]
--- NOTE | 2024-03-30 07:41 | PC.NURSE ---
Pt alert and oriented x3. Afebrile. Pt reports 5-10/10 pain in right foot, pain managed with PRN medication. Pt is up SBA, voiding, and tolerated an NPO diet since 0000. Pt's right ankle dressing is CDI.
[2024-03-30] MEDS: fentaNYL 100 MCG/2 ML inj 50 MCG IVP (09:41)
[2024-03-30] MEDS: LACTATED RINGERS 1000 ML 1,000 ML 75 ML IV (09:53)
--- NOTE | 2024-03-30 11:38 | PM.IMPN1 ---
Progress Note: A&P Assessment and plan (1) MSSA (methicillin susceptible Staphylococcus aureus) infection: Problem details: - Right lateral ankle - 10/03/23 Right bimalleolar ankle fracture open reduction internal fixation, Dr. Godwin - 11/06/23 irrigation and debridement, oral antibiotics (HDW not removed) - 03/22/24 I&D, hardware removal, started oral Keflex - 03/28/24 persistent pain and purulent discharge, received Unasyn in [facility] (enterobacter growing) - 03/29/24 persistent pain and discharge - admitted to [facility] for 3rd washout - All cultures are MSSA, whiteside sensitive (other than one outlier at [facility]) -noncompliance -smoker, recreational drug use, poor socioeconomic status, chronic mental health issues, obesity, type 2 diabetes insulin dependent -changing vanc/zosyn to IV cefepime 2 q 8 hours -WBAT per ortho -wound vac over closed incision line Status: Acute (2) Open wound of ankle: Problem details: -MSSA, possible Enterobacter -wound and bone cultures obtained in OR am of 03/30 Status: Acute (3) Insulin dependent type 2 diabetes mellitus: Problem details: -A1c 8.0 -insulin monotherapy, regular and Lantus -adjusted evening Lantus from 20-25 units Status: Acute (4) Status post open reduction with internal fixation (ORIF) of fracture of ankle: Problem details: - Right bimalleolar ankle fracture open reduction internal fixation, Dr. Godwin, 10/03/2023 Status: Acute (5) Tobacco abuse: Problem details: quit since 10/04 Status: Acute (6) Polypharmacy: Problem details: -adderall, fluoxetine, hydroxyzine, insulin, lamictal, prazosin, risperidone, ropinirole Status: Acute (7) Tetrahydrocannabinol (THC) dependence: Problem details: UDS in 11/01 ([facility] ED): THC, meth, opiates, ampethamine, benzos, tricyclics. (pt would have had active rx for oxycodone, adderall) Status: Acute (8) Panic disorder with agoraphobia: Status: Acute Subjective Date Seen: 03/30/24 Interval history: Daily Progress Note - Hospital Medicine Day #: 2 Post Op Day#: 0 PROCEDURE: 1. Right distal fibula irrigation and debridement 2. Application of an incisional wound VAC CC: Right distal fibula infected nonunion 24 HOUR UPDATE: stable night. no fevers. I meet patient post-op from 3rd I/D. wound vac in place. patient comfortable. vitals stable. Notable Labs, Micro, Rads, Interventions: Afebrile overnight. T-max 98.4 Blood pressure stable. 123/61 Pulse 80s Respiratory rate 18, unlabored Pulse ox 91% on room air 105.8 kilos CBC reflects a normal white blood cell count. It also reveals a down trending hemoglobin 13.6 in October, preoperatively and 10.3 postoperatively. Estimated blood loss in surgery 5 mL. Normal platelets. Normal electrolytes and normal renal function. Hyperglycemia noted 153-260. Hemoglobin A1c 8.0 CRP 1.2 Admission chest x-ray reviewed. No acute findings. Ankle CT reviewed. Op note reviewed. All of her micro reviewed since last October that was available in our EMR. Pansensitive MSSA only micro organism identified. I did locate a wound culture from ER visit on 03/28/24 that is growing enterobacter cloacae (res to ancef) Blood cultures negative to date Objective: alert, on her cell phone. Vitals: see above Lungs: Clear. Cardiac: S1S2. wound - dressing intact. Disposition/Potential discharge - home Today I spent 50minutes seeing the patient, reviewing Expanse and EPIC notes/diagnostics, discussing the care plan with our care time that includes social work, PT/OT, pharmacy, RT, senior care and documenting my impressions and plan in the medical record. Exam Const: Vital Signs, click to edit/add: Vital Signs - 24 hr 03/29/24 16:19 03/29/24 16:45 03/29/24 18:30 Temperature 98.5 F Pulse Rate 87 Pulse Rate [Right Pulse Oximeter] 102 H Respiratory Rate 18 Blood Pressure [Ri ght Arm] 86/62 L 108/58 L Pulse Oximetry 93 Oxygen Delivery Me thod Room Air 03/29/24 20:00 03/29/24 21:53 03/29/24 23:00 Temperature 98.1 F 97.8 F Pulse Rate Pulse Rate [Right Pulse Oximeter] 94 94 Respiratory Rate 18 20 Blood Pressure [Ri ght Arm] 119/64 126/76 Pulse Oximetry 92 93 94 Oxygen Delivery Me thod Room Air Room Air 03/29/24 23:00 03/29/24 23:00 03/29/24 23:00 Temperature Pulse Rate 91 Pulse Rate [Right Pulse Oximeter] 92 Respiratory Rate Blood Pressure [Ri ght Arm] Pulse Oximetry 91 Oxygen Delivery Me thod 03/30/24 01:49 03/30/24 04:56 Temperature 98.4 F 97.9 F Pulse Rate Pulse Rate [Right Pulse Oximeter] 92 87 Respiratory Rate 20 24 Blood Pressure [Ri ght Arm] 137/76 148/75 H Pulse Oximetry 92 95 Oxygen Delivery Me thod Room Air Room Air Labs Labs: Laboratory Results - last 24 hr 03/29/24 03/29/24 03/29/24 17:41 23:15 23:30 WBC 10.46 RBC 4.63 Hgb 11.0 L Hct 36.3 MCV 78 L MCH 24 L MCHC 30 L RDW Coeff of Jose 15.5 Plt Count 310 Neut % (Auto) 49.5 Lymph % (Auto) 36.5 [place] % (Auto) 8.6 Eos % (Auto) 4.4 Baso % (Auto) 0.4 Neut # (Auto) 5.18 Lymph # (Auto) 3.82 H [place] # (Auto) 0.90 Eos # (Auto) 0.46 Baso # (Auto) 0.04 Abs Immat Gran (auto) 0.06 Imm/Tot Granulo (auto) 0.6 Sodium 136 Potassium 4.2 Chloride 105 Carbon Dioxide 23 Anion Gap 8 BUN 15 Creatinine 0.9 Estimated Creat Clear 71.11 Estimated GFR 77 Glucose 190 H Hemoglobin A1c Lactate 1.7 Calcium 8.7 C-Reactive Protein 1.3 H HCG, Qual Negative Lab Acknowledgement Test Added Test Added 03/30/24 06:09 WBC 8.92 RBC 4.37 Hgb 10.3 L Hct 34.8 MCV 80 MCH 24 L MCHC 30 L RDW Coeff of Jose 15.5 Plt Count 298 Neut % (Auto) 43.3 Lymph % (Auto) 41.0 [place] % (Auto) 9.0 Eos % (Auto) 5.8 Baso % (Auto) 0.3 Neut # (Auto) 3.86 Lymph # (Auto) 3.66 H [place] # (Auto) 0.80 Eos # (Auto) 0.52 H Baso # (Auto) 0.03 Abs Immat Gran (auto) 0.05 Imm/Tot Granulo (auto) 0.6 Sodium 139 Potassium 4.2 Chloride 113 Carbon Dioxide 23 Anion Gap 3 L BUN 10 Creatinine 0.8 Estimated Creat Clear 79.99 Estimated GFR 89 Glucose 153 H Hemoglobin A1c 8.0 H Lactate Calcium 8.3 L C-Reactive Protein 1.2 H HCG, Qual Lab Acknowledgement
--- NOTE | 2024-03-30 12:22 | CRLHL7_ITS ---
For Patients: As a result of the Century Cures Act, medical imaging exams and procedure reports are released immediately into your electronic medical record. You may view this report before your referring provider. If you have questions, please contact your health care provider. INDICATION: PICC placement. TECHNIQUE: Chest 1 views. COMPARISON: March 29, 2024. FINDINGS: Cardiovascular and mediastinum: Heart size and vasculature are normal in caliber and appearance. Left PICC with tip in the superior cavoatrial junction. Lungs and pleural spaces: Lungs are clear. No sign of infiltrate or mass. No sign of pleural effusion. No pneumothorax. Bones and soft tissues: No significant findings. IMPRESSION: Left PICC with tip in the superior cavoatrial junction. Dictated by Ankit Gamino MD @ 03/30/2024 3:47:48 PM (Electronically Signed)
[2024-03-30] MEDS: FLUOXETINE HCL 20 MG CAPSULE 40 MG PO ×2 (12:46→20:26)
[2024-03-30] MEDS: MAGNESIUM OXIDE 400 MG TABLET PO (12:48)
[2024-03-30] MEDS: lamoTRIgine 100 MG TABLET 400 MG PO (12:48)
[2024-03-30] MEDS: CEFEPIME HCL 2 GM in 0.9 % SODIUM CHLORIDE Mini-bag 100 ML IVPB ×2 (12:49→20:05)
[2024-03-30] MEDS: 0.9 % SODIUM CHLORIDE 1000 ml 1,000 ML 75 ML IV (13:17)
[2024-03-30] MEDS: lisinopriL 5 MG TABLET PO (13:18)
[2024-03-30] MEDS: INSULIN ASPART 100 UNIT/ML SUBCUT ×3 (13:19→20:38)
[2024-03-30] MEDS: INSULIN ASPART 100 UNIT/ML 12 UNIT SUBCUT ×2 (13:19→17:23)
--- NOTE | 2024-03-30 13:38 | PC.SOCIAL ---
Addendum entered by Armida Thomas GORE STITCHER 04/01/24 15:35: Late entry: Received call at 8:00am today from Archana at [facility], stating their management has decided they can not accept this pt for out-pt IV abx treatment. Original Note: Social work: Per M, pt is requesting out pt IV abx be arranged at the infusion center at [facility] as pt would be able to get rides to and from there and would not be able to get rides to and from [facility]. Called [facility] [phone] and spoke with Archana who provided fax number to send referral with orders when completed to fax#[phone]. Archana confirmed pt has utilized their facility previously and they most likely will be able to provide the out-pt infusion but can not confirm until order for medication is received. sheet metal worker supervisor to follow up as needed.
--- NOTE | 2024-03-30 13:48 | PC.SOCIAL ---
Discharge planning: bridge ironworker met with pt to discuss discharge planning and her current health insurance status. Pt states that she had UCARE through [employer], but has not paid her monthly premiums since the beginning of November, so her insurance has lapsed and is not active. Pt states that she pays about $174.00 a month for her health insurance premium and plans to pay all her past due premiums next Friday when she gets paid again. Pt states that she makes $27,000.00 a year from her [employer] job and does not qualify for Medical Assistance(manager social work [place] and [place] appear to [place] over income for [place]). Due to the pt not having active insurance right now and being self-pay status, the social work department will not be able to set-up home infusion for the IV Antibiotics that she will need when she discharges from the hospital. Pt states that she will not be able to get a ride to [place] everyday to do outpatient IV Antibiotics in the [facility], but did state that she would be able to get a ride to [facility] in [place], since she lives only fifteen minutes from [place]. Social work to follow-up as needed.
--- NOTE | 2024-03-30 14:04 | W.PM.INFDCN ---
Consultation Information Consultation Information Date of Consult: 03/30/24 Requesting Physician: Rosario Song Reason for Consult: MSSA SSTI / OM Consultation Statement: This patient recommendation is based on a telemedicine consult request which was completed asynchronously through chart review and information provided by the primary physician. The patient was not seen or examined today. The evaluation is consultative in nature and all patient care and treatment decisions can either be accepted or rejected by the patient's primary hospital-based treating physician using their own independent medical judgment for their patient. [employer] contact information: Please call ID [facility] center [phone] HPI - Infectious Disease History of Present Illness History of Present Illness: 53 yo F w numerous comorbidities as noted below, s/p right ankle fracture, s/p ORIF, c/b MSSA infection, s/p multiple I&D's and hardware removal readmitted to [facility] ([place] on 03/29/24 with concerns for infection. Past medical history notable for DM, HTN, CAD/h/o OR, COPD, depression, anxiety at a less, Ortho/ID HX: S/p mechanical fall c/b right trimalleolar closed, displaced ankle fracture on 09/25/2023 for which he underwent ORIF with Dr. Ponce on [facility] 10/03/2023. A plate and several screws has been placed. She was lost to follow-up and ultimately presented on 11/04 with concerns for right ankle infection with a surgical wound draining pus. RTOR for I&D and washout on 11/05. Purulent drainage noted with a sinus tract in the distal third of the incision communicating with a distal fibula plate. She was discharged on 2 weeks of doxycycline. Again she was lost for follow-up and has been reevaluated on 03/19/2024 with 2 weeks of purulent drainage from the right ankle. Wound cultures obtained. Since patient was HDS antibiotics were held. She ultimately underwent I&D and hardware removal on 03/22/[address] Hess. Gross purulence down to the bone has been noted intraoperatively. Since preoperative cultures has been grown MSSA patient was discharged on Keflex to complete 2 weeks of therapy. Around 03/27 she noted increased purulent drainage from the lateral ankle wound prompting her going to [place] ED. Right ankle CT showed subsequent removal of plate and screws from distal fibula majority of over the fracture without broad healing. Fluid within the soft tissue deep to the wound extensive the lateral and anterior aspects of the fibula. No ankle joint effusion. She was given Unasyn and has been advised to follow-up with Ortho. Readmitted on 03/29 and started on vancomycin/Zosyn. Now s/p I&D and wound VAC placement on 03/[address] Godwin. Purulence noted. Wound and bone cultures has been obtained. Micro: Right ankle wound culture 11/05: MSSA; anaerobic cultures: Negative. Right ankle wound culture 03/19: MSSA and coag negative staph. Right ankle wound culture 03/22: MSSA. Blood cultures 03/29: NGTD. 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 (ICD-10) MSSA (methicillin susceptible Staphylococcus aureus) infection ?A49.01 - Methicillin susceptible Staphylococcus aureus infection, unspecified site (ICD-10) Insulin dependent type 2 diabetes mellitus ?E11.9 - Type 2 diabetes mellitus without complications (ICD-10) ?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 (ICD-10) Thyroid nodule ?E04.1 - Nontoxic single thyroid nodule (ICD-10) Coronary artery disease ?I25.10 - Atherosclerotic heart disease of [place] coronary artery without angina pectoris (ICD-10) NSTEMI (non-ST elevated myocardial infarction) ?I21.4 - Non-ST elevation (NSTEMI) myocardial infarction (ICD-10) Vitamin D deficiency ?E55.9 - Vitamin D deficiency, unspecified (ICD-10) Nephrolithiasis ?N20.0 - Calculus of kidney (ICD-10) Menopause syndrome ?N95.1 - Menopausal and female climacteric states (ICD-10) Personality disorder, unspecified ?F60.9 - Personality disorder, unspecified (ICD-10) Drug-seeking behavior ?Z76.5 - Malingerer [conscious simulation] (ICD-10) Moderate recurrent major depression ?F33.1 - Major depressive disorder, recurrent, moderate (ICD-10) Gastritis ?K29.70 - Gastritis, unspecified, without bleeding (ICD-10) Panic disorder with agoraphobia ?F40.01 - Agoraphobia with panic disorder (ICD-10) Episodic cannabis use ?F12.90 - Cannabis use, unspecified, uncomplicated (ICD-10) High risk HPV infection ?B97.7 - Papillomavirus as the cause of diseases classified elsewhere (ICD-10) Severe dysplasia of cervix ?D06.9 - Carcinoma in situ of cervix, unspecified (ICD-10) Ankle fracture, bimalleolar, closed ?S82.843A - Displaced bimalleolar fracture of unspecified lower leg, initial encounter for closed fracture (ICD-10) Migraine headache ?G43.909 - Migraine, unspecified, not intractable, without status migrainosus (ICD-10) PTSD (post-traumatic stress disorder) ?F43.10 - Post-traumatic stress disorder, unspecified (ICD-10) Restless leg syndrome ?G25.81 - Restless legs syndrome (ICD-10) Anxiety ?F41.9 - Anxiety disorder, unspecified (ICD-10) Depression ?F32.A - Depression, unspecified (ICD-10) Elevated cholesterol ?E78.00 - Pure hypercholesterolemia, unspecified (ICD-10) COPD (chronic obstructive pulmonary disease) ?J44.9 - Chronic obstructive pulmonary disease, unspecified (ICD-10) Hypothyroid ?E03.9 - Hypothyroidism, unspecified (ICD-10) Hypertension ?I10 - Essential (primary) hypertension (ICD-10) Surgical History (Updated 03/30/24 @ 11:56 by Paige Godwin MD) H/O lithotripsy ?Z98.890 - Other specified postprocedural states (ICD-10) H/O coronary angiogram ?Z98.890 - Other specified postprocedural states (ICD-10) History of incision and drainage (11/06/23) ?Z98.890 - Other specified postprocedural states (ICD-10) Status post open reduction with internal fixation (ORIF) of fracture of ankle (10/03/23) ?Z98.890 - Other specified postprocedural states (ICD-10) ?Z87.81 - Personal history of (healed) traumatic fracture (ICD-10) H/O tubal ligation ?Z98.51 - Tubal ligation status (ICD-10) History of cholecystectomy ?Z90.49 - Acquired absence of other specified parts of digestive tract (ICD-10) H/O lumbar discectomy ?Z98.890 - Other specified postprocedural states (ICD-10) Family History (Updated 03/29/24 @ 16:29 by Louann Farmer MD) Mother Ovarian cancer, Onset Age: 39 Social History (Updated 03/29/24 @ 22:06 by Louann Farmer MD) Narrative: Not , 2 grown children, son is in snf in [place]. Sister and her best friend are helping her out around the house. Quit tob in sep 2023. Denies alcohol use. Smokes a joint once a night before bed. What is your current living situation?: I presently have a place to live Problems where you live: no known problems Problems where you live details: N/A In the past 12 months, utilities in danger of being shut off: no In past 12 months, lack of transportation kept you from medical appts, meetings, work, or getting things needed for daily living: no In the past 12 mos, have been you worried that your food would run out before you had money to buy more?: never true In the past 12 mos, the food you bought just didn't last and you didn't have money to buy more?: never true Highest level of school completed/degree received: GED or equivalent Smoking Status: Former smoker What tobacco products do you use: cigarettes Smoking packs per day: 0.5 Smoking cigarettes per day: 10.0 Years smoked: 15 Smoking pack-years: 7.50 Smoking quit date/years: <= 15 years ago Do you use any of these nicotine containing products: None How often do you have a drink containing alcohol: never AUDIT-C Alcohol total score: 0 Non-prescribed substance use: marijuana (any form) Non-prescribed substance use details: daily Caffeine: Yes (pop) How often does anyone, including family, friends and others, physically hurt you: never How often does anyone, including family, friends and others, insult or talk down to you: never How often does anyone, including family, friends and others, threaten you with harm: never How often does anyone, including family, friends and others, scream or curse at you: never Are you using contraception or practicing any form of control: No (tubes tied) service: No Home Medications and Allergies Home Medications and Allergies Inpatient Medications: Active Medications Generic Name Dose Route Start Last Admin Trade Name Freq PRN Reason Stop Dose Admin Acetaminophen 1,300 mg 03/29/24 16:57 Acetaminophen 650 Mg Tablet Er PO Q8H PRN Pain Aspirin 81 mg 03/30/24 21:00 Aspirin 81 Mg Tab.Chew PO BID JANES Atorvastatin Calcium 80 mg 03/29/24 21:00 03/29/24 20:57 Atorvastatin Calcium 40 Mg Tablet PO 80 mg HS JANES Administration Fluoxetine HCl 40 mg 03/29/24 21:00 03/30/24 12:46 Fluoxetine Hcl 20 Mg Capsule PO 40 mg BID JANES Administration Hydrocortisone/Aloe 1 applic 03/29/24 21:13 03/29/24 21:28 Hydrocortisone 1 % Cream TOPICAL 1 applic QID PRN Administration eczyma Hydroxyzine Pamoate 100 mg 03/29/24 21:00 03/30/24 12:31 Hydroxyzine Pamoate 25 Mg Capsule PO Not Given TID JANES Vancomycin/PEG/NADA/Lysine/Water 1.5 gm in 300 mls @ 200 mls/hr 03/30/24 06:00 03/30/24 06:11 Vancomycin 1.5 Gm/300 Ml IVPB 200 mls/hr Q12H JANES Administration Piperacillin Sod/Tazobactam 100 mls @ 200 mls/hr 03/29/24 20:00 03/30/24 12:29 Sod 3.375 gm/ Sodium Chloride IVPB Not Given Q6H JANES Sodium Chloride 1,000 mls @ 75 mls/hr 03/29/24 20:00 03/30/24 13:17 0.9 % Sodium Chloride 1000 Ml IV 75 mls/hr .[id number] JANES Administration Cefazolin Sodium 2 gm/ Sodium 100 mls @ 200 mls/hr 03/30/24 11:45 03/30/24 12:30 Chloride IVPB Not Given Q8H JANES Cefepime HCl 2 gm/ Sodium 100 mls @ 200 mls/hr 03/30/24 12:30 03/30/24 12:49 Chloride IVPB 200 mls/hr Q8H [facility] Administration IV Miscellaneous Supplies 1 each 03/29/24 17:10 Pharmacist Consult Q24H [facility] Protocol Insulin Aspart 12 unit 03/29/24 18:00 03/30/24 13:19 Insulin Aspart 100 Unit/Ml SUBCUT 12 unit TIDWM JANES Administration Insulin Aspart 0 unit 03/29/24 17:30 03/30/24 13:19 Insulin Aspart 100 Unit/Ml SUBCUT 8 unit ACHS [facility] Administration Protocol Insulin Glargine 25 unit 03/30/24 21:00 Insulin Glargine,Hum.Rec.Anlog 100 Unit/Ml Insuln.Pen SUBCUT HS [facility] Lamotrigine 400 mg 03/30/24 09:00 03/30/24 12:48 Lamotrigine 100 Mg Tablet PO 400 mg DAILY [facility] Administration Lisinopril 5 mg 03/30/24 09:00 03/30/24 13:18 Lisinopril 5 Mg Tablet PO 5 mg DAILY [facility] Administration Lorazepam 1 mg 03/30/24 13:59 Lorazepam 1 Mg Tablet PO Q4H PRN Agitation Magnesium Oxide 400 mg 03/30/24 09:00 03/30/24 12:48 Magnesium Oxide 400 Mg Tablet PO 400 mg DAILY [facility] Administration Melatonin 6 mg 03/29/24 16:57 Melatonin 3 Mg Tablet PO HS PRN Insomnia Nitroglycerin 0.4 mg 03/29/24 17:00 Nitroglycerin 0.4 Mg Tab.Subl SUBLINGUAL Q5M PRN Dextroamphetamine- 1 tab 03/29/24 21:14 Amphetamine 1 Tab PO BID PRN Nystatin 1 applic 03/29/24 21:00 03/30/24 12:30 Nystatin Powder TOPICAL Not Given TID [facility] Omeprazole 40 mg 03/30/24 07:00 03/30/24 06:17 Omeprazole [address] PO Not Given DAILY@0700 [facility] Ondansetron HCl 4 mg 03/29/24 16:57 Ondansetron Odt 4 Mg Tab PO Q6H PRN Nausea And Vomiting Oxycodone HCl 2.5 - 5 mg 03/29/24 16:57 03/30/24 10:41 Oxycodone 5 Mg Tablet PO 5 mg Q4H PRN Administration Pain Polyethylene Glycol 17 gm 03/29/24 16:57 Polyethylene Glycol 3350 17 Gm Pack PO DAILY PRN Prazosin HCl 6 mg 03/29/24 21:00 03/29/24 20:58 Prazosin Hcl 1 Mg Capsule PO 6 mg HS JANES Administration Risperidone 3 mg 03/29/24 21:00 03/29/24 21:00 Risperidone 1 Mg Tablet PO 3 mg HS JANES Administration Ropinirole HCl 4 mg 03/29/24 21:00 03/29/24 20:59 Ropinirole Hcl 4 Mg Tablet PO 4 mg HS JANES Administration Ropinirole HCl 1 mg 03/29/24 21:00 03/29/24 21:18 Ropinirole Hcl 1 Mg Tablet PO 1 mg HS JANES Administration Senna/Docusate Sodium 1 tab 03/29/24 16:57 Sennosides/Docusate Tablet PO DAILY PRN Sodium Chloride 5 ml 03/29/24 16:57 Sodium Chloride 0.9 % (Flush) 10 Ml Syringe IVF .FLUSH PRN Sodium Chloride 5 ml 03/29/24 21:00 03/30/24 12:29 Sodium Chloride 0.9 % (Flush) 10 Ml Syringe IVF Not Given BID JANES Discontinued Medications Generic Name Dose Route Start Last Admin Trade Name Freq PRN Reason Stop Dose Admin Vancomycin/PEG/NADA/Lysine/Water 2 gm in 400 mls @ 200 mls/hr 03/29/24 18:00 03/29/24 21:07 Vancomycin 2 Gm/400 Ml IVPB 03/29/24 19:59 Infused ONCE ONE Infusion Sodium Chloride 1,000 mls @ 2,000 mls/hr 03/29/24 18:01 03/29/24 21:05 0.9 % Sodium Chloride 1000 Ml IV 03/29/24 19:30 2,000 mls/hr .Q30M JANES Administration Insulin Glargine 20 unit 03/29/24 21:00 03/29/24 21:18 Insulin Glargine,Hum.Rec.Anlog 100 Unit/Ml Insuln.Pen SUBCUT 20 unit HS JANES Administration Dextroamphetamine- 1 tab 03/29/24 21:00 Amphetamine 30 Mg PO Tablet BID JANES Allergies Allergy/AdvReac Type Severity Reaction Status Date / Time adhesive tape Allergy Verified 03/29/24 13:04 cyclobenzaprine Allergy Verified 03/29/24 13:04 [From Flexeril] ibuprofen Allergy Verified 03/29/24 13:04 ketorolac [From Toradol] Allergy Verified 03/29/24 13:04 methocarbamol [From Robaxin] Allergy Verified 03/29/24 13:04 naproxen Allergy Verified 03/29/24 13:04 omeprazole [From Prilosec] Allergy Verified 03/29/24 13:04 Penicillins Allergy Rash Verified 03/29/24 21:14 Sulfa (Sulfonamide Allergy Verified 03/29/24 13:04 Antibiotics) Objective - Infectious Disease Objective Vital Signs: Vital Signs - 24 hr 03/29/24 16:19 03/29/24 16:45 03/29/24 18:30 Temperature 98.5 F Pulse Rate 87 Pulse Rate [Right Pulse Oximeter] 102 H Respiratory Rate 18 Blood Pressure Blood Pressure [Right Arm] 86/62 L 108/58 L Pulse Oximetry 93 Oxygen Delivery Method Room Air 03/29/24 20:00 03/29/24 21:53 03/29/24 23:00 Temperature 98.1 F 97.8 F Pulse Rate Pulse Rate [Right Pulse Oximeter] 94 94 Respiratory Rate 18 20 Blood Pressure Blood Pressure [Right Arm] 119/64 126/76 Pulse Oximetry 92 93 94 Oxygen Delivery Method Room Air Room Air 03/29/24 23:00 03/29/24 23:00 03/29/24 23:00 Temperature Pulse Rate 91 Pulse Rate [Right Pulse Oximeter] 92 Respiratory Rate Blood Pressure Blood Pressure [Right Arm] Pulse Oximetry 91 Oxygen Delivery Method 03/30/24 01:49 03/30/24 04:56 03/30/24 10:07 Temperature 98.4 F 97.9 F 98.9 F Pulse Rate 89 Pulse Rate [Right Pulse Oximeter] 92 87 Respiratory Rate 20 24 14 Blood Pressure 128/72 Blood Pressure [Right Arm] 137/76 148/75 H Pulse Oximetry 92 95 90 Oxygen Delivery Method Room Air Room Air Room Air Narrative: Patient was not seen or examined. Results - Infectious Disease Results Labs: 03/29/24 18:13 Blood Blood Culture - Pending 03/29/24 18:13 Blood Blood Culture - Pending 03/29/24 17:07 Nares MRSA Screen - Pending Laboratory Tests 03/30/24 03/29/24 03/29/24 Range/Units 06:09 23:30 23:15 WBC 8.92 (4.50-11.00) K/uL RBC 4.37 (4.00-5.20) m/uL Hgb 10.3 L (12.0-16.0) gm/dL Hct 34.8 (33.0-51.0) % MCV 80 (80-100) fL MCH 24 L (26-34) pg MCHC 30 L (32-36) gm/dL RDW Coeff of Jose 15.5 (11.5-15.5) % Plt Count 298 (140-440) K/uL Neut % (Auto) 43.3 (42.0-72.0) % Lymph % (Auto) 41.0 (20-44) % Carlton % (Auto) 9.0 (0.0-11.0) % Eos % (Auto) 5.8 (0.0-7.0) % Baso % (Auto) 0.3 (0.0-3.0) % Neut # (Auto) 3.86 (1.7-7.0) K/uL Lymph # (Auto) 3.66 H (0.90-2.90) K/uL Carlton # (Auto) 0.80 (0.00-0.90) K/UL Eos # (Auto) 0.52 H (0.00-0.50) K/uL Baso # (Auto) 0.03 (0.00-0.30) K/uL Abs Immat Gran (auto) 0.05 (0.00-0.30) K/uL Imm/Tot Granulo (auto) 0.6 % Sodium 139 (135-149) mmol/L Potassium 4.2 (3.6-5.1) mmol/L Chloride 113 (96-114) mmol/L Carbon Dioxide 23 (20-32) mmol/L Anion Gap 3 L (7-15) mEq/L BUN 10 (7-30) mg/dL Creatinine 0.8 (0.5-1.5) mg/dL Estimated Creat Clear 79.99 Estimated GFR 89 ml/min Glucose 153 H (60-115) mg/dL Hemoglobin A1c 8.0 H (0-5.6) % Lactate (0.5-1.9) mmol/L Calcium 8.3 L (8.4-10.6) mg/dL C-Reactive Protein 1.2 H (0.5-1.0) mg/dL HCG, Qual (Negative) Lab Acknowledgement Test Added Test Added 03/29/24 Range/Units 17:41 WBC 10.46 (4.50-11.00) K/uL RBC 4.63 (4.00-5.20) m/uL Hgb 11.0 L (12.0-16.0) gm/dL Hct 36.3 (33.0-51.0) % MCV 78 L (80-100) fL MCH 24 L (26-34) pg MCHC 30 L (32-36) gm/dL RDW Coeff of Jose 15.5 (11.5-15.5) % Plt Count 310 (140-440) K/uL Neut % (Auto) 49.5 (42.0-72.0) % Lymph % (Auto) 36.5 (20-44) % Carlton % (Auto) 8.6 (0.0-11.0) % Eos % (Auto) 4.4 (0.0-7.0) % Baso % (Auto) 0.4 (0.0-3.0) % Neut # (Auto) 5.18 (1.7-7.0) K/uL Lymph # (Auto) 3.82 H (0.90-2.90) K/uL Carlton # (Auto) 0.90 (0.00-0.90) K/UL Eos # (Auto) 0.46 (0.00-0.50) K/uL Baso # (Auto) 0.04 (0.00-0.30) K/uL Abs Immat Gran (auto) 0.06 (0.00-0.30) K/uL Imm/Tot Granulo (auto) 0.6 % Sodium 136 (135-149) mmol/L Potassium 4.2 (3.6-5.1) mmol/L Chloride 105 (96-114) mmol/L Carbon Dioxide 23 (20-32) mmol/L Anion Gap 8 (7-15) mEq/L BUN 15 (7-30) mg/dL Creatinine 0.9 (0.5-1.5) mg/dL Estimated Creat Clear 71.11 Estimated GFR 77 ml/min Glucose 190 H (60-115) mg/dL Hemoglobin A1c (0-5.6) % Lactate 1.7 (0.5-1.9) mmol/L Calcium 8.7 (8.4-10.6) mg/dL C-Reactive Protein 1.3 H (0.5-1.0) mg/dL HCG, Qual Negative (Negative) Lab Acknowledgement Impression & Recommendations Recommendations Impression & Recommendations: 53 yo F w numerous comorbidities as noted below, s/p right ankle fracture, s/p ORIF, c/b MSSA infection, s/p multiple I&D's and hardware removal readmitted to [facility] on 03/29/24 with concerns for infection. Past medical history notable for DM, HTN, CAD/h/o OR, COPD, depression, anxiety, PTSD Ortho/ID HX: S/p mechanical fall c/b right trimalleolar closed, displaced ankle fracture on 09/25/2023 for which he underwent ORIF with Dr. Ponce on [facility] 10/03/2023. A plate and several screws has been placed. She was lost to follow-up and ultimately presented on 11/04 with concerns for right ankle infection with a surgical wound draining pus. RTOR for I&D and washout on 11/05. Purulent drainage noted with a sinus tract in the distal third of the incision communicating with a distal fibula plate. She was discharged on 2 weeks of doxycycline. Again she was lost for follow-up and has been reevaluated on 03/19/2024 with 2 weeks of purulent drainage from the right ankle. Wound cultures obtained. Since patient was HDS antibiotics were held. She ultimately underwent I&D and hardware removal on 03/22/[address] Hess. Gross purulence down to the bone has been noted intraoperatively. Since preoperative cultures has been grown MSSA patient was discharged on Keflex to complete 2 weeks of therapy. Around 03/27 she noted increased purulent drainage from the lateral ankle wound prompting her going to [place] ED. Right ankle CT showed subsequent removal of plate and screws from distal fibula majority of over the fracture without broad healing. Fluid within the soft tissue deep to the wound extensive the lateral and anterior aspects of the fibula. No ankle joint effusion. She was given Unasyn and has been advised to follow-up with Ortho. Readmitted on 03/29 and started on vancomycin/Zosyn. Now s/p I&D and wound VAC placement on 03/[address] Godwin. Purulence noted. Wound and bone cultures has been obtained. Micro: Right ankle wound culture 11/05: MSSA; anaerobic cultures: Negative. Right ankle wound culture 03/19: MSSA and coag negative staph. Right ankle wound culture 03/22: MSSA. Blood cultures 03/29: NGTD. 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 MSSA is likely culprit. Since patient is HDS, okay to narrow antibiotics to cefazolin 2 g IV every 8 hours to minimize side effects including nephrotoxicity. Please monitor eosinophils after changing antibiotics. Anticipate patient will need 6 weeks of targeted antibiotics counting from I&D 03/30/2024 - 05/10/2024. Final antibiotic recommendation depends on culture results. If the only pathogen identified remains MSSA, the standard of care will be cefazolin. For ease of administration can be given as a continuous infusion, 6 g over 24 hours. If patient unable or declines to received IV antibiotics at home, potentially she can go on dalbavancin 1500 mg IV x 2, 2 weeks apart followed by short course of p.o. antibiotic. Not a good candidate for p.o. linezolid given polypharmacy and interactions with SSRIs/SNRIs. Oral beta-lactam's would be inferior comparing to IV given low bioavailability. Please, monitor for allergic reactions since patient had listed allergy to penicillins but apparently tolerated Keflex and Zosyn with no side effects in the past. Unable to see right ankle x-ray from 03/29 but assume that all hardware has been removed. If that is the case, no further suppression will be required. Recommendations: -Stop vancomycin -Stop Zosyn -Monitor absolute eosinophil cell count -Start cefazolin 2 g IV every 8 hours -Monitor for antibiotic side effects, allergic reactions, diarrhea -Follow-up blood cultures from 03/29 -Follow-up or cultures (bone cultures) from 03/30 -No PICC lines, till discussed with ID -Further recommendations to follow Discussed with Dr. Godwin Thank you for the consult. ID will follow up with you. Please call/page for questions/concerns. Fartun Chong MD
[2024-03-30] MEDS: GLIMEPIRIDE 4 MG TABLET 8 MG PO (14:44)
[2024-03-30] MEDS: hydrOXYzine pamoate 25 MG CAPSULE 100 MG PO ×2 (14:45→20:26)
[2024-03-30] MEDS: ASPIRIN 81 MG TAB.CHEW PO (14:45)
[2024-03-30] MEDS: NYSTATIN POWDER 1 APPLIC TOPICAL ×2 (14:46→20:25)
--- NOTE | 2024-03-30 15:33 | PC.NURSE ---
End of shift [id number]: Pt alert and oriented x3. Afebrile. Pt reports 5-10/10 pain in right foot, pain managed with PRN medication. Pt is up SBA, voiding, and is tolerating advanced diet well post-surgery.?Pt's right ankle dressing is CDI.
[2024-03-30] MEDS: ATORVASTATIN CALCIUM 40 MG TABLET 80 MG PO (20:26)
[2024-03-30] MEDS: PRAZOSIN HCL 1 MG CAPSULE 6 MG PO (20:27)
[2024-03-30] MEDS: risperiDONE 1 MG TABLET 3 MG PO (20:28)
[2024-03-30] MEDS: INSULIN GLARGINE,HUM.REC.ANLOG 100 UNIT/ML INSULN.PEN 25 UNIT SUBCUT (20:38)
[2024-03-30] MEDS: ROPINIROLE HCL 1 MG TABLET PO (20:40)
[2024-03-31] VITALS (12 sets, daily range): BP systolic 136–175; BP diastolic 72–95; PULSE 84–97; RESP 18–20; TEMP 36.6–37.1; O2SAT 93–96
[2024-03-31] MEDS: OXYCODONE 5 MG TABLET PO ×5 (01:29→23:30)
[2024-03-31] MEDS: 0.9 % SODIUM CHLORIDE 1000 ml 1,000 ML 75 ML IV ×3 (03:05→23:31)
[2024-03-31] MEDS: CEFEPIME HCL 2 GM in 0.9 % SODIUM CHLORIDE Mini-bag 100 ML IVPB ×3 (04:34→20:02)
[2024-03-31] MEDS: OMEPRAZOLE 20 MG CAPSULE DR 40 MG PO (05:58)
--- NOTE | 2024-03-31 06:43 | PC.NURSE ---
Pt is alert and oriented x3. Afebrile.?Pt report 8/10 pain in right ankle, pain managed with PRN medication.?Denies pain, chest pain, SOB, and N/V. Pt?s wound vac is patent and draining. Pt is up SBA with IV pole and wound VAC. ?
[2024-03-31 06:48] LABS: Basophils Absolute Auto 0.03 K/uL (0.00-0.30); Basophils Percent Auto 0.3 % (0.0-3.0); Eosinophils Percent Auto 1.8 % (0.0-7.0); Hematocrit 34.2 % (33.0-51.0); Hemoglobin* 10.2 gm/dL (12.0-16.0); Immature Granulocytes Abs Auto 0.04 K/uL (0.00-0.30); Immature Granulocytes Pct Auto 0.4 %; Lymphocytes Absolute Auto 3.77 K/uL (0.90-2.90); Lymphocytes Percent Auto 34.5 % (20-44); Mean Corpuscular HGB Conc 30 gm/dL (32-36); Mean Corpuscular Hemoglobin 23 pg (26-34); Mean Corpuscular Volume 78 fL (80-100); Monocytes Percent Auto 8.5 % (0.0-11.0); Neutrophils Absolute Auto 5.97 K/uL (1.7-7.0); Neutrophils Percent Auto 54.5 % (42.0-72.0); Platelet Count* 317 K/uL (140-440); RDW Coefficient of Variation % 15.3 % (11.5-15.5); Red Blood Count 4.37 m/uL (4.00-5.20); White Blood Count* 10.94 K/uL (4.50-11.00)
[2024-03-31 06:54] LABS: Slide Review Reflex No
[2024-03-31 07:05] LABS: Albumin* 3.5 g/dL (3.3-5.0); Chloride* 112 mmol/L (96-114); Sodium* 140 mmol/L (135-149)
[2024-03-31 07:07] LABS: Creatinine* 0.6 mg/dL (0.5-1.5); Est. Creatinine Clearance* 106.66; Estimated Glomerular Filt Rate 108 ml/min
[2024-03-31 07:08] LABS: Alanine Aminotransferase* 16 U/L (4-35); Alkaline Phosphatase* 88 U/L (40-150); Anion Gap 4 mEq/L (7-15); Aspartate Amino Transferase* 16 U/L (12-35); Bilirubin Total* 0.4 mg/dL (0.1-1.5); Blood Urea Nitrogen* 7 mg/dL (7-30); Carbon Dioxide* 24 mmol/L (20-32); Total Protein* 6.3 g/dL (6.0-8.3)
[2024-03-31 07:09] LABS: Glucose* 156 mg/dL (60-115)
[2024-03-31 07:14] LABS: C Reactive Protein* < 0.5 mg/dL (0.5-1.0)
--- NOTE | 2024-03-31 07:46 | PM.IMPN1 ---
Progress Note: A&P Assessment and plan (1) Osteomyelitis of ankle: Problem details: Osteomyelitis of the lateral right ankle/fibula. Pending cultures. Likely MSSA and Enterobacter cloacae. IV cefepime as inpatient pending cultures. Possibly ertapenem as outpatient. Status: Acute (2) MSSA (methicillin susceptible Staphylococcus aureus) infection: Problem details: - Right lateral ankle - 10/03/23 Right bimalleolar ankle fracture open reduction internal fixation, Dr. Godwni - 11/06/23 irrigation and debridement, oral antibiotics (HDW not removed) - 03/22/24 I&D, hardware removal, started oral Keflex - 03/28/24 persistent pain and purulent discharge, received Unasyn in [place] [facility] (enterobacter growing) - 03/29/24 persistent pain and discharge - admitted to [facility] for 3rd washout (03/30/[address] Godwin) - All cultures are MSSA, whiteside sensitive (other than one outlier at [facility]) -noncompliance -smoker, recreational drug use, poor socioeconomic status, chronic mental health issues, obesity, type 2 diabetes insulin dependent -changing vanc/zosyn to IV cefepime 2 q 8 hours -WBAT per ortho -wound vac over closed incision line Status: Acute (3) Insulin dependent type 2 diabetes mellitus: Problem details: -A1c 8.0 -insulin monotherapy, regular and Lantus -adjusted evening Lantus from 20-25 units Continue to monitor and adjust therapy to optimize blood sugar control Status: Acute (4) Status post open reduction with internal fixation (ORIF) of fracture of ankle: Problem details: - Right bimalleolar ankle fracture open reduction internal fixation, Dr. Godwin, 10/03/2023 Status: Acute (5) Tobacco abuse: Problem details: quit since 10/04 Status: Acute (6) Polypharmacy: Problem details: -adderall, fluoxetine, hydroxyzine, insulin, lamictal, prazosin, risperidone, ropinirole Status: Acute (7) Tetrahydrocannabinol (THC) dependence: Problem details: UDS in 11/01 ([facility] ED): THC, meth, opiates, ampethamine, benzos, tricyclics. (pt would have had active rx for oxycodone, adderall) Status: Acute (8) Panic disorder with agoraphobia: Status: Acute (9) Discharge planning issues: Problem details: Patient will likely need 4-6 weeks of outpatient IV antibiotics along with the wound VAC. working with neonatal social worker to make arrangements for these outpatient services. Patient has not paid insurance premiums recently so health insurance has . She is unable to afford expensive outpatient care. Status: Acute (10) Noncompliance: Problem details: Patient has been noncompliance with fracture care, wound care secondary to financial, transportation and other issues. Working with neonatal social worker and care team to optimize outcomes. Status: Acute Plan Continue patient in hospital for IV antibiotics and wound care pending cultures and discharge plan Time Spent With Patient Total time spent: Total time spent today is 60 minutes in coordination of care Subjective Date Seen: 03/31/24 Interval history: [address] [address] Infectious Disease E-Consult Infectious diseases Consultation Information Consultation Information Date of Consult: 03/30/24 Requesting Physician: Rosario Song Reason for Consult: MSSA SSTI / OM Consultation Statement: This patient recommendation is based on a telemedicine consult request which was completed asynchronously through chart review and information provided by the primary physician. The patient was not seen or examined today. The evaluation is consultative in nature and all patient care and treatment decisions can either be accepted or rejected by the patient's primary hospital-based treating physician using their own independent medical judgment for their patient. [employer] contact information: Please call [facility] call center [phone] HPI - Infectious Disease History of Present Illness History of Present Illness: 53 yo F w numerous comorbidities as noted below, s/p right ankle fracture, s/p ORIF, c/b MSSA infection, s/p multiple I&D's and hardware removal readmitted to [facility] ([place]) on 03/29/24 with concerns for infection. Past medical history notable for DM, HTN, CAD/h/o [place], COPD, depression, anxiety at a less, Ortho/ID HX: S/p mechanical fall c/b right trimalleolar closed, displaced ankle fracture on 09/25/2023 for which he underwent ORIF with Dr. Ponce on [facility] 10/03/2023. A plate and several screws has been placed. She was lost to follow-up and ultimately presented on 11/04 with concerns for right ankle infection with a surgical wound draining pus. RTOR for I&D and washout on 11/05. Purulent drainage noted with a sinus tract in the distal third of the incision communicating with a distal fibula plate. She was discharged on 2 weeks of doxycycline. Again she was lost for follow-up and has been reevaluated on 03/19/2024 with 2 weeks of purulent drainage from the right ankle. Wound cultures obtained. Since patient was HDS antibiotics were held. She ultimately underwent I&D and hardware removal on 03/22/[address] Hess. Gross purulence down to the bone has been noted intraoperatively. Since preoperative cultures has been grown MSSA patient was discharged on Keflex to complete 2 weeks of therapy. Around 03/27 she noted increased purulent drainage from the lateral ankle wound prompting her going to [place] [facility]. Right ankle CT showed subsequent removal of plate and screws from distal fibula majority of over the fracture without broad healing. Fluid within the soft tissue deep to the wound extensive the lateral and anterior aspects of the fibula. No ankle joint effusion. She was given Unasyn and has been advised to follow-up with Ortho. Readmitted on 03/29 and started on vancomycin/Zosyn. Now s/p I&D and wound VAC placement on 03/[address] Godwin. Purulence noted. Wound and bone cultures has been obtained. Micro: Right ankle wound culture 11/05: MSSA; anaerobic cultures: Negative. Right ankle wound culture 03/19: MSSA and coag negative staph. Right ankle wound culture 03/22: MSSA. Blood cultures 03/29: NGTD. MRSA screen 03/29: Pending OR cultures 03/29: Right fibula bone - 2 sets: Aerobic and anaerobic: Pending Impression & Recommendations: 53 yo F w numerous comorbidities as noted below, s/p right ankle fracture, s/p ORIF, c/b MSSA infection, s/p multiple I&D's and hardware removal readmitted to [facility] ([place]) on 03/29/24 with concerns for infection. Past medical history notable for DM, HTN, CAD/h/o [place], COPD, depression, anxiety, PTSD Ortho/ID HX: S/p mechanical fall c/b right trimalleolar closed, displaced ankle fracture on 09/25/2023 for which he underwent ORIF with Dr. Kris Godwin 10/03/2023. A plate and several screws has been placed. She was lost to follow-up and ultimately presented on 11/04 with concerns for right ankle infection with a surgical wound draining pus. RTOR for I&D and washout on 11/05. Purulent drainage noted with a sinus tract in the distal third of the incision communicating with a distal fibula plate. She was discharged on 2 weeks of doxycycline. Again she was lost for follow-up and has been reevaluated on 03/19/2024 with 2 weeks of purulent drainage from the right ankle. Wound cultures obtained. Since patient was HDS antibiotics were held. She ultimately underwent I&D and hardware removal on 03/22/[address] Hess. Gross purulence down to the bone has been noted intraoperatively. Since preoperative cultures has been grown MSSA patient was discharged on Keflex to complete 2 weeks of therapy. Around 03/27 she noted increased purulent drainage from the lateral ankle wound prompting her going to [place] [facility]. Right ankle CT showed subsequent removal of plate and screws from distal fibula majority of over the fracture without broad healing. Fluid within the soft tissue deep to the wound extensive the lateral and anterior aspects of the fibula. No ankle joint effusion. She was given Unasyn and has been advised to follow-up with Ortho. Readmitted on 03/29 and started on vancomycin/Zosyn. Now s/p I&D and wound VAC placement on 03/[address] Godwin. Purulence noted. Wound and bone cultures has been obtained. Micro: Right ankle wound culture 11/05: MSSA; anaerobic cultures: Negative. Right ankle wound culture 03/19: MSSA and coag negative staph. Right ankle wound culture 03/22: MSSA. Ankle wound culture at [facility] 03/28: Enterobacter cloacae complex resistant to cefazolin. Blood cultures 03/29: NGTD. MRSA screen 03/29: Pending OR cultures 03/29: Right fibula bone - 2 sets: Aerobic and anaerobic: Pending March 31 update: With cultures showing MSSA and Enterobacter cloaca day. Change antibiotic to cefepime 2 g IV Q 8 pending final cultures. Possibly outpatient treatment with ertapenem for 4-6 weeks depending on final cultures. Hospitalist note: Patient has no concerns today. No fever. Ankle pain is manageable. Blood sugars 92-259 over the last day. Exam Narrative: Exam Narrative: Leg is examined. Mild edema and erythema around the wound VAC. intact pedal pulses and sensation. Const: Vital Signs, click to edit/add: Vital Signs - 24 hr 03/30/24 10:07 03/30/24 10:15 03/30/24 10:30 Temperature 98.9 F 98.2 F Pulse Rate 89 91 86 Pulse Rate [Right Pulse Oximeter] Respiratory Rate 14 16 14 Blood Pressure 128/72 129/73 99/64 Blood Pressure [Ri ght Arm] Pulse Oximetry 90 93 92 Oxygen Delivery Me thod Room Air Room Air Room Air 03/30/24 10:45 03/30/24 11:00 03/30/24 11:30 Temperature 98 F 98.1 F 98.4 F Pulse Rate 95 93 96 Pulse Rate [Right Pulse Oximeter] Respiratory Rate 18 16 14 Blood Pressure 168/87 H 127/65 122/66 Blood Pressure [Ri ght Arm] Pulse Oximetry 96 92 95 Oxygen Delivery Me thod Room Air Room Air Room Air 03/30/24 12:00 03/30/24 13:00 03/30/24 14:00 Temperature 98.3 F 98.4 F 98.5 F Pulse Rate 96 99 100 Pulse Rate [Right Pulse Oximeter] Respiratory Rate 16 16 16 Blood Pressure 118/62 151/80 H 140/69 H Blood Pressure [Ri ght Arm] Pulse Oximetry 93 93 92 Oxygen Delivery Me thod Room Air Room Air Room Air 03/30/24 16:00 03/30/24 16:00 03/30/24 16:15 Temperature 98.4 F 98.4 F Pulse Rate 94 94 94 Pulse Rate [Right Pulse Oximeter] Respiratory Rate 18 18 Blood Pressure 145/77 H 145/77 H Blood Pressure [Ri ght Arm] Pulse Oximetry 92 92 Oxygen Delivery Me thod Room Air Room Air 03/30/24 16:54 03/30/24 19:00 03/30/24 23:16 Temperature 97.9 F Pulse Rate 88 Pulse Rate [Right Pulse Oximeter] 89 Respiratory Rate 18 Blood Pressure Blood Pressure [Ri ght Arm] 132/76 Pulse Oximetry 92 91 Oxygen Delivery Me thod Room Air 03/31/24 04:32 Temperature 97.8 F Pulse Rate Pulse Rate [Right Pulse Oximeter] 97 Respiratory Rate 20 Blood Pressure Blood Pressure [Ri ght Arm] 136/75 Pulse Oximetry 95 Oxygen Delivery Me thod Room Air Documenting provider has reviewed patient's vital signs: yes Labs Labs: Laboratory Results - last 24 hr 03/31/24 06:15 WBC 10.94 RBC 4.37 Hgb 10.2 L Hct 34.2 MCV 78 L MCH 23 L MCHC 30 L RDW Coeff of Jose 15.3 Plt Count 317 Neut % (Auto) 54.5 Lymph % (Auto) 34.5 [place] % (Auto) 8.5 Eos % (Auto) 1.8 Baso % (Auto) 0.3 Neut # (Auto) 5.97 Lymph # (Auto) 3.77 H [place] # (Auto) 0.90 Eos # (Auto) 0.20 Baso # (Auto) 0.03 Abs Immat Gran (auto) 0.04 Imm/Tot Granulo (auto) 0.4 Sodium 140 Potassium 4.0 Chloride 112 Carbon Dioxide 24 Anion Gap 4 L BUN 7 Creatinine 0.6 Estimated Creat Clear 106.66 Estimated GFR 108 Glucose 156 H Calcium 9.0 Total Bilirubin 0.4 AST 16 ALT 16 Alkaline Phosphatase 88 C-Reactive Protein < 0.5 L Total Protein 6.3 Albumin 3.5
[2024-03-31] MEDS: INSULIN ASPART 100 UNIT/ML 12 UNIT SUBCUT ×2 (08:41→17:35)
[2024-03-31] MEDS: INSULIN ASPART 100 UNIT/ML SUBCUT ×2 (08:42→17:36)
[2024-03-31] MEDS: MAGNESIUM OXIDE 400 MG TABLET PO (08:45)
[2024-03-31] MEDS: ASPIRIN 81 MG TAB.CHEW PO (08:45)
[2024-03-31] MEDS: hydrOXYzine pamoate 25 MG CAPSULE 100 MG PO ×3 (08:45→21:13)
[2024-03-31] MEDS: FLUOXETINE HCL 20 MG CAPSULE 40 MG PO ×2 (08:45→21:06)
[2024-03-31] MEDS: lisinopriL 5 MG TABLET PO (08:45)
[2024-03-31] MEDS: lamoTRIgine 100 MG TABLET 400 MG PO (08:46)
[2024-03-31] MEDS: GLIMEPIRIDE 4 MG TABLET 8 MG PO (08:46)
--- NOTE | 2024-03-31 08:46 | W.PM.IDPRG_ITS ---
Visit Information Visit Information Visit Information: Patient was not seen. Subjective Subjective Subjective: This patient recommendation is based on a telemedicine consult request which was completed asynchronously through chart review and information provided by the primary physician. The patient was not seen or examined today. The evaluation is consultative in nature and all patient care and treatment decisions can either be accepted or rejected by the patient's primary hospital-based treating physician using their own independent medical judgment for their patient. Home Medications and Allergies Home Medications and Allergies Inpatient Medications: Active Medications Generic Name Dose Route Start Last Admin Trade Name Freq PRN Reason Stop Dose Admin Acetaminophen 1,300 mg 03/29/24 16:57 Acetaminophen 650 Mg Tablet Er PO Q8H PRN Pain Aspirin 81 mg 03/30/24 14:30 03/30/24 14:45 Aspirin 81 Mg Tab.Chew PO 81 mg DAILY JANES Administration Atorvastatin Calcium 80 mg 03/29/24 21:00 03/30/24 20:26 Atorvastatin Calcium 40 Mg Tablet PO 80 mg HS JANES Administration Fluoxetine HCl 40 mg 03/29/24 21:00 03/30/24 20:26 Fluoxetine Hcl 20 Mg Capsule PO 40 mg BID JANES Administration Glimepiride 8 mg 03/30/24 14:30 03/30/24 14:44 Glimepiride 4 Mg Tablet PO 8 mg DAILY JANES Administration Hydrocortisone/Aloe 1 applic 03/29/24 21:13 03/29/24 21:28 Hydrocortisone 1 % Cream TOPICAL 1 applic QID PRN Administration eczyma Hydroxyzine Pamoate 100 mg 03/29/24 21:00 03/30/24 20:26 Hydroxyzine Pamoate 25 Mg Capsule PO 100 mg TID JANES Administration Sodium Chloride 1,000 mls @ 75 mls/hr 03/29/24 20:00 03/31/24 03:05 0.9 % Sodium Chloride 1000 Ml IV 75 mls/hr .[id number] JANES Administration Cefazolin Sodium 2 gm/ Sodium 100 mls @ 200 mls/hr 03/30/24 11:45 03/30/24 12:30 Chloride IVPB Not Given Q8H JANES Cefepime HCl 2 gm/ Sodium 100 mls @ 200 mls/hr 03/30/24 12:30 03/31/24 04:34 Chloride IVPB 200 mls/hr Q8H JANES Administration Insulin Aspart 12 unit 03/29/24 18:00 03/30/24 17:23 Insulin Aspart 100 Unit/Ml SUBCUT 12 unit TIDWM JANES Administration Insulin Aspart 0 unit 03/29/24 17:30 03/30/24 20:38 Insulin Aspart 100 Unit/Ml SUBCUT 2 unit ACHS [facility] Administration Protocol Insulin Glargine 25 unit 03/30/24 21:00 03/30/24 20:38 Insulin Glargine,Hum.Rec.Anlog 100 Unit/Ml Insuln.Pen SUBCUT 25 unit HS [facility] Administration Lamotrigine 400 mg 03/30/24 09:00 03/30/24 12:48 Lamotrigine 100 Mg Tablet PO 400 mg DAILY [facility] Administration Lisinopril 5 mg 03/30/24 09:00 03/30/24 13:18 Lisinopril 5 Mg Tablet PO 5 mg DAILY [facility] Administration Lorazepam 1 mg 03/30/24 13:59 Lorazepam 1 Mg Tablet PO Q4H PRN Agitation Magnesium Oxide 400 mg 03/30/24 09:00 03/30/24 12:48 Magnesium Oxide 400 Mg Tablet PO 400 mg DAILY [facility] Administration Melatonin 6 mg 03/29/24 16:57 Melatonin 3 Mg Tablet PO HS PRN Insomnia Nitroglycerin 0.4 mg 03/29/24 17:00 Nitroglycerin 0.4 Mg Tab.Subl SUBLINGUAL Q5M PRN Dextroamphetamine- 1 tab 03/29/24 21:14 Amphetamine 1 Tab PO BID PRN Nystatin 1 applic 03/29/24 21:00 03/30/24 20:25 Nystatin Powder TOPICAL 1 applic TID [facility] Administration Omeprazole 40 mg 03/30/24 07:00 03/31/24 05:58 Omeprazole [address] PO 40 mg DAILY@0700 [facility] Administration Ondansetron HCl 4 mg 03/29/24 16:57 Ondansetron Odt 4 Mg Tab PO Q6H PRN Nausea And Vomiting Oxycodone HCl 2.5 - 5 mg 03/29/24 16:57 03/31/24 05:58 Oxycodone 5 Mg Tablet PO 5 mg Q4H PRN Administration Pain Polyethylene Glycol 17 gm 03/29/24 16:57 Polyethylene Glycol 3350 17 Gm Pack PO DAILY PRN Prazosin HCl 6 mg 03/29/24 21:00 03/30/24 20:27 Prazosin Hcl 1 Mg Capsule PO 6 mg HS JANES Administration Risperidone 3 mg 03/29/24 21:00 03/30/24 20:28 Risperidone 1 Mg Tablet PO 3 mg HS JANES Administration Ropinirole HCl 4 mg 03/29/24 21:00 03/30/24 20:28 Ropinirole Hcl 4 Mg Tablet PO 4 mg HS JANES Administration Ropinirole HCl 1 mg 03/29/24 21:00 03/30/24 20:40 Ropinirole Hcl 1 Mg Tablet PO 1 mg HS JANES Administration Senna/Docusate Sodium 1 tab 03/29/24 16:57 Sennosides/Docusate Tablet PO DAILY PRN Sodium Chloride 5 ml 03/29/24 16:57 Sodium Chloride 0.9 % (Flush) 10 Ml Syringe IVF .FLUSH PRN Sodium Chloride 5 ml 03/29/24 21:00 03/30/24 20:29 Sodium Chloride 0.9 % (Flush) 10 Ml Syringe IVF Not Given BID JANES Discontinued Medications Generic Name Dose Route Start Last Admin Trade Name Freq PRN Reason Stop Dose Admin Aspirin 81 mg 03/30/24 21:00 Aspirin 81 Mg Tab.Chew PO BID JANES Chloroprocaine HCl 20 ml 03/30/24 07:30 Chloroprocaine Pf 2 % 20 Ml Vial INJECTION 03/30/24 07:31 .STK-MED ONE Dexamethasone 4 mg 03/30/24 07:30 Dexamethasone 4 Mg/Ml Vial INJECTION 03/30/24 07:31 .STK-MED ONE Fentanyl 100 mcg 03/30/24 07:30 Fentanyl 100 Mcg/2 Ml Inj IV 03/30/24 07:31 .STK-MED ONE Vancomycin/PEG/NADA/Lysine/Water 2 gm in 400 mls @ 200 mls/hr 03/29/24 18:00 03/29/24 21:07 Vancomycin 2 Gm/400 Ml IVPB 03/29/24 19:59 Infused ONCE ONE Infusion Vancomycin/PEG/NADA/Lysine/Water 1.5 gm in 300 mls @ 200 mls/hr 03/30/24 06:00 03/30/24 19:07 Vancomycin 1.5 Gm/300 Ml IVPB Infused Q12H JANES Infusion Piperacillin Sod/Tazobactam 100 mls @ 200 mls/hr 03/29/24 20:00 03/30/24 12:29 Sod 3.375 gm/ Sodium Chloride IVPB Not Given Q6H [facility] Sodium Chloride 1,000 mls @ 2,000 mls/hr 03/29/24 18:01 03/30/24 19:07 0.9 % Sodium Chloride 1000 Ml IV 03/29/24 19:30 Infused .Q30M [facility] Infusion IV Miscellaneous Supplies 1 each 03/29/24 17:10 Pharmacist Consult Q24H [facility] Protocol Insulin Glargine 20 unit 03/29/24 21:00 03/29/24 21:18 Insulin Glargine,Hum.Rec.Anlog 100 Unit/Ml Insuln.Pen SUBCUT 20 unit HS [facility] Administration Lidocaine HCl 5 ml 03/30/24 07:30 Lidocaine 2% (Pf) 5 Ml Vial INJECTION 03/30/24 07:31 .STK-MED ONE Midazolam HCl 2 mg 03/30/24 07:30 Midazolam Hcl 1 Mg/Ml Inj IVP 03/30/24 07:31 .STK-MED ONE Dextroamphetamine- 1 tab 03/29/24 21:00 03/30/24 19:06 Amphetamine 30 Mg PO Not Given Tablet BID [facility] Phenylephrine HCl 100 mcg 03/30/24 07:30 Phenylephrine 100 Mcg/Ml Syringe IVP 03/30/24 07:31 .STK-MED ONE Propofol 200 mg 03/30/24 07:30 Propofol 10 Mg/Ml Inj IVP 03/30/24 07:31 .STK-MED ONE Allergies Allergy/AdvReac Type Severity Reaction Status Date / Time adhesive tape Allergy Verified 03/29/24 13:04 cyclobenzaprine Allergy Verified 03/29/24 13:04 [From Flexeril] ibuprofen Allergy Verified 03/29/24 13:04 ketorolac [From Toradol] Allergy Verified 03/29/24 13:04 methocarbamol [From Robaxin] Allergy Verified 03/29/24 13:04 naproxen Allergy Verified 03/29/24 13:04 omeprazole [From Prilosec] Allergy Verified 03/29/24 13:04 Penicillins Allergy Rash Verified 03/29/24 21:14 Sulfa (Sulfonamide Allergy Verified 03/29/24 13:04 Antibiotics) Objective - Infectious Disease Objective Vital Signs: Vital Signs - 24 hr 03/30/24 10:07 03/30/24 10:15 03/30/24 10:30 Temperature 98.9 F 98.2 F Pulse Rate 89 91 86 Pulse Rate [Right Pulse Oximeter] Respiratory Rate 14 16 14 Blood Pressure 128/72 129/73 99/64 Blood Pressure [Right Arm] Pulse Oximetry 90 93 92 Oxygen Delivery Method Room Air Room Air Room Air 03/30/24 10:45 03/30/24 11:00 03/30/24 11:30 Temperature 98 F 98.1 F 98.4 F Pulse Rate 95 93 96 Pulse Rate [Right Pulse Oximeter] Respiratory Rate 18 16 14 Blood Pressure 168/87 H 127/65 122/66 Blood Pressure [Right Arm] Pulse Oximetry 96 92 95 Oxygen Delivery Method Room Air Room Air Room Air 03/30/24 12:00 03/30/24 13:00 03/30/24 14:00 Temperature 98.3 F 98.4 F 98.5 F Pulse Rate 96 99 100 Pulse Rate [Right Pulse Oximeter] Respiratory Rate 16 16 16 Blood Pressure 118/62 151/80 H 140/69 H Blood Pressure [Right Arm] Pulse Oximetry 93 93 92 Oxygen Delivery Method Room Air Room Air Room Air 03/30/24 16:00 03/30/24 16:00 03/30/24 16:15 Temperature 98.4 F 98.4 F Pulse Rate 94 94 94 Pulse Rate [Right Pulse Oximeter] Respiratory Rate 18 18 Blood Pressure 145/77 H 145/77 H Blood Pressure [Right Arm] Pulse Oximetry 92 92 Oxygen Delivery Method Room Air Room Air 03/30/24 16:54 03/30/24 19:00 03/30/24 23:16 Temperature 97.9 F Pulse Rate 88 Pulse Rate [Right Pulse Oximeter] 89 Respiratory Rate 18 Blood Pressure Blood Pressure [Right Arm] 132/76 Pulse Oximetry 92 91 Oxygen Delivery Method Room Air 03/31/24 04:32 03/31/24 07:54 03/31/24 07:55 Temperature 97.8 F 98.3 F Pulse Rate Pulse Rate [Right Pulse Oximeter] 97 97 Respiratory Rate 20 18 Blood Pressure Blood Pressure [Right Arm] 136/75 175/95 H Pulse Oximetry 95 96 96 Oxygen Delivery Method Room Air Room Air Narrative: Patient was not seen or examined. Results - Infectious Disease Results Labs: 03/29/24 18:13 Blood Blood Culture - Preliminary NO GROWTH AFTER 24 HOURS 03/29/24 18:13 Blood Blood Culture - Preliminary NO GROWTH AFTER 24 HOURS 03/29/24 17:07 Nares MRSA Screen - Final No growth. Laboratory Tests 03/31/24 03/30/24 03/29/24 Range/Units 06:15 06:09 23:30 WBC 10.94 8.92 (4.50-11.00) K/uL RBC 4.37 4.37 (4.00-5.20) m/uL Hgb 10.2 L 10.3 L (12.0-16.0) gm/dL Hct 34.2 34.8 (33.0-51.0) % MCV 78 L 80 (80-100) fL MCH 23 L 24 L (26-34) pg MCHC 30 L 30 L (32-36) gm/dL RDW Coeff of Jose 15.3 15.5 (11.5-15.5) % Plt Count 317 298 (140-440) K/uL Neut % (Auto) 54.5 43.3 (42.0-72.0) % Lymph % (Auto) 34.5 41.0 (20-44) % Parmer % (Auto) 8.5 9.0 (0.0-11.0) % Eos % (Auto) 1.8 5.8 (0.0-7.0) % Baso % (Auto) 0.3 0.3 (0.0-3.0) % Neut # (Auto) 5.97 3.86 (1.7-7.0) K/uL Lymph # (Auto) 3.77 H 3.66 H (0.90-2.90) K/uL Parmer # (Auto) 0.90 0.80 (0.00-0.90) K/UL Eos # (Auto) 0.20 0.52 H (0.00-0.50) K/uL Baso # (Auto) 0.03 0.03 (0.00-0.30) K/uL Abs Immat Gran (auto) 0.04 0.05 (0.00-0.30) K/uL Imm/Tot Granulo (auto) 0.4 0.6 % Sodium 140 139 (135-149) mmol/L Potassium 4.0 4.2 (3.6-5.1) mmol/L Chloride 112 113 (96-114) mmol/L Carbon Dioxide 24 23 (20-32) mmol/L Anion Gap 4 L 3 L (7-15) mEq/L BUN 7 10 (7-30) mg/dL Creatinine 0.6 0.8 (0.5-1.5) mg/dL Estimated Creat Clear 106.66 79.99 Estimated GFR 108 89 ml/min Glucose 156 H 153 H (60-115) mg/dL Hemoglobin A1c 8.0 H (0-5.6) % Lactate (0.5-1.9) mmol/L Calcium 9.0 8.3 L (8.4-10.6) mg/dL Total Bilirubin 0.4 (0.1-1.5) mg/dL AST 16 (12-35) U/L ALT 16 (4-35) U/L Alkaline Phosphatase 88 (40-150) U/L C-Reactive Protein < 0.5 L 1.2 H (0.5-1.0) mg/dL Total Protein 6.3 (6.0-8.3) g/dL Albumin 3.5 (3.3-5.0) g/dL HCG, Qual (Negative) Lab Acknowledgement Test Added 03/29/24 03/29/24 Range/Units 23:15 17:41 WBC 10.46 (4.50-11.00) K/uL RBC 4.63 (4.00-5.20) m/uL Hgb 11.0 L (12.0-16.0) gm/dL Hct 36.3 (33.0-51.0) % MCV 78 L (80-100) fL MCH 24 L (26-34) pg MCHC 30 L (32-36) gm/dL RDW Coeff of Jose 15.5 (11.5-15.5) % Plt Count 310 (140-440) K/uL Neut % (Auto) 49.5 (42.0-72.0) % Lymph % (Auto) 36.5 (20-44) % Parmer % (Auto) 8.6 (0.0-11.0) % Eos % (Auto) 4.4 (0.0-7.0) % Baso % (Auto) 0.4 (0.0-3.0) % Neut # (Auto) 5.18 (1.7-7.0) K/uL Lymph # (Auto) 3.82 H (0.90-2.90) K/uL Parmer # (Auto) 0.90 (0.00-0.90) K/UL Eos # (Auto) 0.46 (0.00-0.50) K/uL Baso # (Auto) 0.04 (0.00-0.30) K/uL Abs Immat Gran (auto) 0.06 (0.00-0.30) K/uL Imm/Tot Granulo (auto) 0.6 % Sodium 136 (135-149) mmol/L Potassium 4.2 (3.6-5.1) mmol/L Chloride 105 (96-114) mmol/L Carbon Dioxide 23 (20-32) mmol/L Anion Gap 8 (7-15) mEq/L BUN 15 (7-30) mg/dL Creatinine 0.9 (0.5-1.5) mg/dL Estimated Creat Clear 71.11 Estimated GFR 77 ml/min Glucose 190 H (60-115) mg/dL Hemoglobin A1c (0-5.6) % Lactate 1.7 (0.5-1.9) mmol/L Calcium 8.7 (8.4-10.6) mg/dL Total Bilirubin (0.1-1.5) mg/dL AST (12-35) U/L ALT (4-35) U/L Alkaline Phosphatase (40-150) U/L C-Reactive Protein 1.3 H (0.5-1.0) mg/dL Total Protein (6.0-8.3) g/dL Albumin (3.3-5.0) g/dL HCG, Qual Negative (Negative) Lab Acknowledgement Test Added Assessment and Plan Assessment and Plan Assessment and Plan: 53 yo F w numerous comorbidities as noted below, s/p right ankle fracture, s/p ORIF, c/b MSSA infection, s/p multiple I&D's and hardware removal readmitted to [facility] ([place]) on 03/29/24 with concerns for infection. Past medical history notable for DM, HTN, CAD/h/o [place], COPD, depression, anxiety, PTSD Ortho/ID HX: S/p mechanical fall c/b right trimalleolar closed, displaced ankle fracture on 09/25/2023 for which he underwent ORIF with Dr. Kris Godwin 10/03/2023. A plate and several screws has been placed. She was lost to follow-up and ultimately presented on 11/04 with concerns for right ankle infection with a surgical wound draining pus. RTOR for I&D and washout on 11/05. Purulent drainage noted with a sinus tract in the distal third of the incision communicating with a distal fibula plate. She was discharged on 2 weeks of doxycycline. Again she was lost for follow-up and has been reevaluated on 03/19/2024 with 2 weeks of purulent drainage from the right ankle. Wound cultures obtained. Since patient was HDS antibiotics were held. She ultimately underwent I&D and hardware removal on 03/22/[address] Hess. Gross purulence down to the bone has been noted intraoperatively. Since preoperative cultures has been grown MSSA patient was discharged on Keflex to complete 2 weeks of therapy. Around 03/27 she noted increased purulent drainage from the lateral ankle wound prompting her going to [place] [facility]. Right ankle CT showed subsequent removal of plate and screws from distal fibula majority of over the fracture without broad healing. Fluid within the soft tissue deep to the wound extensive the lateral and anterior aspects of the fibula. No ankle joint effusion. She was given Unasyn and has been advised to follow-up with Ortho. Readmitted on 03/29 and started on vancomycin/Zosyn. Now s/p I&D and wound VAC placement on 03/[address] Godwin. Purulence noted. Wound and bone cultures has been obtained. Micro: Right ankle wound culture 11/05: MSSA; anaerobic cultures: Negative. Right ankle wound culture 03/19: MSSA and coag negative staph. Right ankle wound culture 03/22: MSSA. Blood cultures 03/29: NGTD. 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 MSSA is likely culprit. Since patient is HDS, okay to narrow antibiotics to cefazolin 2 g IV every 8 hours to minimize side effects including nephrotoxicity. Please monitor eosinophils after changing antibiotics. Anticipate patient will need 6 weeks of targeted antibiotics counting from I&D 03/30/2024 - 05/10/2024. Final antibiotic recommendation depends on culture results. If the only pathogen identified remains MSSA, the standard of care will be cefazolin. For ease of administration can be given as a continuous infusion, 6 g over 24 hours. If patient unable or declines to received IV antibiotics at home, potentially she can go on dalbavancin 1500 mg IV x 2, 2 weeks apart followed by short course of p.o. antibiotic. Not a good candidate for p.o. linezolid given polypharmacy and interactions with SSRIs/SNRIs. Oral beta-lactam's would be inferior comparing to IV given low bioavailability. Please, monitor for allergic reactions since patient had listed allergy to penicillins but apparently tolerated Keflex and Zosyn with no side effects in the past. Unable to see right ankle x-ray from 03/29 but assume that all hardware has been removed. If that is the case, no further suppression will be required. 03/31/24: Afebrile. Hypertensive with blood pressure up to 175/95. WBC 10.9. Hemoglobin 10. Platelets 317. Eosinophils down to 1.8% from 5.8; Cr 0.6. CRP < 0.5. Per hospitalist note, the wound culture from 03/28 along with MSSA grew Enterobacter. I am unable to locate this culture in the chart. Will check with the primary team. Ma be this info is from OSH records. If indeed there is a concern for Enterobacter, patient needs to be changed from cefazolin to cefepime 2 g IV every 8 hours while awaiting for cultures to finalize. Recommendations: -Continue cefazolin 2 g IV every 8 hours -Monitor for antibiotic side effects, allergic reactions, diarrhea -Follow-up blood cultures from 03/29 -Follow-up or cultures (bone cultures) from 03/30 -No PICC lines, till discussed with ID -Further recommendations to follow Thank you for the consult. ID will follow up with you. Please call/page for questions/concerns. Fartun Chong MD
[2024-03-31] MEDS: SODIUM CHLORIDE 0.9 % (FLUSH) 10 ML SYRINGE 5 ML IVF (08:47)
--- NOTE | 2024-03-31 08:49 | P.ORPN_ITS ---
Subjective Subjective Time Seen by Provider: 08:10 Date Seen: 03/31/24 Principal diagnosis: Day 1 s/p right distal fibula I&D and application of wound vac Interval history: Kelly is resting comfortably in bed. C/o 7 out of 10 right ankle pain. Diffusely warm; temperature this AM was 98.3*F. Wound vac remains intact and leak free with approx. 75 mL bloody drainage. Admits to strong appetite. Patient is eager to be discharged as soon as possible. Ortho Exam Narrative Exam Narrative: Patient is alert and oriented x3. No acute distress. Converses with nonlabored breathing. Right ankle exam: Wound vac in place and leak free with 75 mL bloody drainage. Mild-moderate right ankle swelling. Diffusely excessively warm to the touch full body. Able to wiggle toes appropriately. Full ankle AROM DF/PF. CMS intact distally with 2+ DP and PT pulses. Terrell, warm digits with brisk capillary refill. Sensation confirmed distally. Damian wrap applied around ankle after this exam. Const Vital Signs, click to edit/add: Vital Signs - 24 hr 03/30/24 10:07 03/30/24 10:15 03/30/24 10:30 Temperature 98.9 F 98.2 F Pulse Rate 89 91 86 Pulse Rate [Right Pulse Oximeter] Respiratory Rate 14 16 14 Blood Pressure 128/72 129/73 99/64 Blood Pressure [Right Arm] Pulse Oximetry 90 93 92 Oxygen Delivery Method Room Air Room Air Room Air 03/30/24 10:45 03/30/24 11:00 03/30/24 11:30 Temperature 98 F 98.1 F 98.4 F Pulse Rate 95 93 96 Pulse Rate [Right Pulse Oximeter] Respiratory Rate 18 16 14 Blood Pressure 168/87 H 127/65 122/66 Blood Pressure [Right Arm] Pulse Oximetry 96 92 95 Oxygen Delivery Method Room Air Room Air Room Air 03/30/24 12:00 03/30/24 13:00 03/30/24 14:00 Temperature 98.3 F 98.4 F 98.5 F Pulse Rate 96 99 100 Pulse Rate [Right Pulse Oximeter] Respiratory Rate 16 16 16 Blood Pressure 118/62 151/80 H 140/69 H Blood Pressure [Right Arm] Pulse Oximetry 93 93 92 Oxygen Delivery Method Room Air Room Air Room Air 03/30/24 16:00 03/30/24 16:00 03/30/24 16:15 Temperature 98.4 F 98.4 F Pulse Rate 94 94 94 Pulse Rate [Right Pulse Oximeter] Respiratory Rate 18 18 Blood Pressure 145/77 H 145/77 H Blood Pressure [Right Arm] Pulse Oximetry 92 92 Oxygen Delivery Method Room Air Room Air 03/30/24 16:54 03/30/24 19:00 03/30/24 23:16 Temperature 97.9 F Pulse Rate 88 Pulse Rate [Right Pulse Oximeter] 89 Respiratory Rate 18 Blood Pressure Blood Pressure [Right Arm] 132/76 Pulse Oximetry 92 91 Oxygen Delivery Method Room Air 03/31/24 04:32 03/31/24 07:54 03/31/24 07:55 Temperature 97.8 F 98.3 F Pulse Rate Pulse Rate [Right Pulse Oximeter] 97 97 Respiratory Rate 20 18 Blood Pressure Blood Pressure [Right Arm] 136/75 175/95 H Pulse Oximetry 95 96 96 Oxygen Delivery Method Room Air Room Air Assessment and Plan Assessment and plan (1) Status post open reduction with internal fixation (ORIF) of fracture of ankle: Problem details: - Right bimalleolar ankle fracture open reduction internal fixation, Dr. Godwin, 10/03/2023 Status: Acute (2) MSSA (methicillin susceptible Staphylococcus aureus) infection: Problem details: - Right lateral ankle - 10/03/23 Right bimalleolar ankle fracture open reduction internal fixation, Dr. Godwin - 11/06/23 irrigation and debridement, oral antibiotics (HDW not removed) - 03/22/24 I&D, hardware removal, started oral Keflex - 03/28/24 persistent pain and purulent discharge, received Unasyn in [place] [facility] (enterobacter growing) - 03/29/24 persistent pain and discharge - admitted to [facility] for 3rd washout (03/30/[address] Godwin) - All cultures are MSSA, whiteside sensitive (other than one outlier at [facility]) -noncompliance -smoker, recreational drug use, poor socioeconomic status, chronic mental health issues, obesity, type 2 diabetes insulin dependent -changing vanc/zosyn to IV cefepime 2 q 8 hours -WBAT per ortho -wound vac over closed incision line Status: Acute (3) Open wound of ankle: Problem details: Status: Acute Plan - Patient may WBAT. Use walker for assistance. - For pain management, continue to ice, elevate and take oral prescribed pain medications PRN. - For DVT prophylaxis, SCDs and aspirin 81 mg BID. - Wound vac remains intact and leak free. There is approx. 75 mL bloody drainage. Wound vac set 125 mmHg continuous. Tentatively, I will plan to do a wound vac change Friday. - Discharge plan unknown at this time.
--- NOTE | 2024-03-31 09:08 | NUTR.NU ---
RDN with diet education related to diabetic 1500 kcal diet. Patient admitted for MSSA+ infection of right ankle. Patient underwent right leg irrigation debridement for wound abscess 03/30/24. Current weight 227 lb 8oz; height 5ft 7in; BMI 35.6 kg/m2. Weight has been stable within the last 180 days. Current diet is Diabetic 1500 kcal. Meal intakes since admit have been adequate at 50-0-100%. RDN visited with patient whom reports she has been following a diet at home. She has been following the [employer] Diet and been mindful of portion sizes. She is intentionally trying to lose weight. RDN offered diet education related to diabetes, current diet order, and wound however patient declined at this time. No nutrition interventions. RDN will continue to monitor and follow-up prn.
--- NOTE | 2024-03-31 11:51 | PC.SOCIAL ---
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 poultry offal [facility] and left a message letting them know that we had the information on the antibiotic and asked for a call back regarding whether or not they could assist this pt for outpatient infusions. Social work to follow-up as needed.
--- NOTE | 2024-03-31 15:20 | PC.NURSE ---
End of Shift: Patient pleasant and cooperative, A&O. VSS, afebrile. SpO2 maintained above 90% on RA. Patient reports pain on her right ankle this shift, managed with PRN medication, see OCT. PICC in left arm. SBA to bathroom.
[2024-03-31] MEDS: HYDROCORTISONE 1 % CREAM 1 APPLIC TOPICAL (20:07)
[2024-03-31] MEDS: ATORVASTATIN CALCIUM 40 MG TABLET 80 MG PO (21:06)
[2024-03-31] MEDS: PRAZOSIN HCL 1 MG CAPSULE 6 MG PO (21:08)
[2024-03-31] MEDS: risperiDONE 1 MG TABLET 3 MG PO (21:10)
[2024-03-31] MEDS: ROPINIROLE HCL 1 MG TABLET PO (21:11)
[2024-03-31] MEDS: INSULIN GLARGINE,HUM.REC.ANLOG 100 UNIT/ML INSULN.PEN 25 UNIT SUBCUT (21:14)
[2024-04-01] MEDS: ACETAMINOPHEN 650 MG TABLET ER 1300 MG PO (02:01)
[2024-04-01 03:00] VITALS: BP 162/93; PULSE 85; RESP 18; TEMP 36.9; O2SAT 91
[2024-04-01] MEDS: CEFEPIME HCL 2 GM in 0.9 % SODIUM CHLORIDE Mini-bag 100 ML IVPB ×3 (04:00→20:36)
[2024-04-01] MEDS: OXYCODONE 5 MG TABLET PO ×3 (04:03→18:29)
[2024-04-01] MEDS: OMEPRAZOLE 20 MG CAPSULE DR 40 MG PO (06:04)
--- NOTE | 2024-04-01 06:26 | PC.NURSE ---
End of shift note [id number]: Pt noted to be alert & oriented x 4 and able to make needs known. She is transferring/ambulating in room with SBA using IV pole with wound vac. Wound vac and DAVID wrap remain in place to R lateral ankle. CMS to RLE intact. Pt has been afebrile this shift. B/P noted to be 160/72, 154/77 and 162/93 with VS though pt has hx of HTN. No c/o CP. Blood glucose of [address] HS[address] PICC in place to LUE with NS running per order. Pt remains on IV ABX. Pt requested PRN Oxycodone throughout the shift for what she reported as anywhere from ?5-10/10? pain to R ankle. No nonverbal signs of pain noted. Pt continent of bladder. Call light within reach. Pt has been using call light appropriately when needing assistance though non-compliant with wearing gripper socks despite education and encouragement provided.
[2024-04-01 07:00] VITALS: BP 164/83; PULSE 81; PULSE 84; RESP 16; TEMP 36.7; O2SAT 93
[2024-04-01] MEDS: hydrOXYzine pamoate 25 MG CAPSULE 100 MG PO ×3 (08:17→20:38)
[2024-04-01] MEDS: lisinopriL 5 MG TABLET PO (08:17)
[2024-04-01] MEDS: GLIMEPIRIDE 4 MG TABLET 8 MG PO (08:17)
[2024-04-01] MEDS: lamoTRIgine 100 MG TABLET 400 MG PO (08:17)
[2024-04-01] MEDS: MAGNESIUM OXIDE 400 MG TABLET PO (08:18)
[2024-04-01] MEDS: ASPIRIN 81 MG TAB.CHEW PO (08:18)
[2024-04-01] MEDS: FLUOXETINE HCL 20 MG CAPSULE 40 MG PO ×2 (08:18→20:39)
[2024-04-01] MEDS: INSULIN ASPART 100 UNIT/ML 12 UNIT SUBCUT ×3 (08:19→18:30)
--- NOTE | 2024-04-01 09:59 | SUR.OPER ---
Charting from intra-operative document and Phase I moved from incorrect account to inpatient account by Doyle CARR. Charting and patient care given by Destiny.
--- NOTE | 2024-04-01 10:14 | P.IMPN_ITS ---
Progress Note: A&P Assessment and plan (1) Osteomyelitis of ankle: Problem details: Osteomyelitis of the lateral right ankle/fibula. Pending cultures. Likely MSSA and Enterobacter cloacae. IV cefepime as inpatient pending cultures. Possibly ertapenem as outpatient. Status: Acute (2) MSSA (methicillin susceptible Staphylococcus aureus) infection: Problem details: - Right lateral ankle - 10/03/23 Right bimalleolar ankle fracture open reduction internal fixation, Dr. Godwin - 11/06/23 irrigation and debridement, oral antibiotics (HDW not removed) - 03/22/24 I&D, hardware removal, started oral Keflex - 03/28/24 persistent pain and purulent discharge, received Unasyn in [place] ER (enterobacter growing) - 03/29/24 persistent pain and discharge - admitted to [facility] for 3rd washout (03/30/[address] Godwin) - All cultures are MSSA, whiteside sensitive (other than one outlier at [facility]) -noncompliance -smoker, recreational drug use, poor socioeconomic status, chronic mental health issues, obesity, type 2 diabetes insulin dependent IV cefepime 2 q 8 hours -WBAT per ortho -wound vac over closed incision line Status: Acute (3) Insulin dependent type 2 diabetes mellitus: Problem details: -A1c 8.0 -insulin monotherapy, regular and Lantus -adjusted evening Lantus from 20-25 units Continue to monitor and adjust therapy to optimize blood sugar control Status: Acute (4) Status post open reduction with internal fixation (ORIF) of fracture of ankle: Problem details: - Right bimalleolar ankle fracture open reduction internal fixation, Dr. Godwin, 10/03/2023 Status: Acute (5) Tobacco abuse: Problem details: quit since 10/04 Status: Acute (6) Polypharmacy: Problem details: -adderall, fluoxetine, hydroxyzine, insulin, lamictal, prazosin, risperidone, ropinirole Status: Acute (7) Tetrahydrocannabinol (THC) dependence: Problem details: UDS in 11/01 ([facility] ED): THC, meth, opiates, ampethamine, benzos, tricyclics. (pt would have had active rx for oxycodone, adderall) Status: Acute (8) Panic disorder with agoraphobia: Status: Acute (9) Discharge planning issues: Problem details: Patient will likely need 4-6 weeks of outpatient IV antibiotics. Wound VAC will probably be discontinued at discharge. working with social work instructor to make arrangements for these outpatient services. Patient has not paid insurance premiums recently so health insurance has . She is unable to afford expensive outpatient care. Her daughter is able to provide daily transportation for outpatient IV antibiotics if necessary Status: Acute (10) Noncompliance: Problem details: Patient has been noncompliance with fracture care, wound care secondary to financial, transportation and other issues. Working with social work instructor and care team to optimize outcomes. Status: Acute Plan Continue in hospital for IV antibiotics pending wound cultures and clinical course and safe discharge plan. Time Spent With Patient Total time spent: Total time spent today is 55 minutes in coordination of care Subjective Date Seen: 04/01/24 Interval history: 53 yo F w numerous comorbidities as noted below, s/p right ankle fracture, s/p ORIF, c/b MSSA infection, s/p multiple I&D's and hardware removal readmitted to [facility] ([place]) on 03/29/24 with concerns for infection. Past medical history notable for DM, HTN, CAD/h/o MD, COPD, depression, anxiety at a less, Ortho/ID HX: S/p mechanical fall c/b right trimalleolar closed, displaced ankle fracture on 09/25/2023 for which he underwent ORIF with Dr. Ponce on [facility] 10/03/2023. A plate and several screws has been placed. She was lost to follow-up and ultimately presented on 11/04 with concerns for right ankle infection with a surgical wound draining pus. RTOR for I&D and washout on 11/05. Purulent drainage noted with a sinus tract in the distal third of the incision communicating with a distal fibula plate. She was discharged on 2 weeks of doxycycline. Again she was lost for follow-up and has been reevaluated on 03/19/2024 with 2 weeks of purulent drainage from the right ankle. Wound cultures obtained. Since patient was HDS antibiotics were held. She ultimately underwent I&D and hardware removal on 03/22/[address] Hess. Gross purulence down to the bone has been noted intraoperatively. Since preoperative cultures has been grown MSSA patient was discharged on Keflex to complete 2 weeks of therapy. Around 03/27 she noted increased purulent drainage from the lateral ankle wound prompting her going to [place] ED. Right ankle CT showed subsequent removal of plate and screws from distal fibula majority of over the fracture without broad healing. Fluid within the soft tissue deep to the wound extensive the lateral and anterior aspects of the fibula. No ankle joint effusion. She was given Unasyn and has been advised to follow-up with Ortho. Readmitted on 03/29 and started on vancomycin/Zosyn. Now s/p I&D and wound VAC placement on 03/[address] Godwin. Purulence noted. Wound and bone cultures has been obtained. Micro: Right ankle wound culture 11/05: MSSA; anaerobic cultures: Negative. Right ankle wound culture 03/19: MSSA and coag negative staph. Right ankle wound culture 03/22: MSSA. Ankle wound culture at [facility] 03/28: Enterobacter cloacae complex resistant to cefazolin. Blood cultures 03/29: NGTD. MRSA screen 03/29: Pending OR cultures 03/29: Right fibula bone - 2 sets: Aerobic and anaerobic: Pending March 31 update: With cultures showing MSSA and Enterobacter cloaca day. Change antibiotic to cefepime 2 g IV Q 8 pending final cultures. Possibly outpatient treatment with ertapenem for 4-6 weeks depending on final cultures. Hospitalist note: Patient has no concerns today. No fever. Ankle pain is manageable. Blood sugars 92-259 over the last day. April 01 update: No significant growth on surgical cultures up-to-date. Patient reports generally doing well. Having manageable pain in her ankle. Blood sugar control is improved. Culture RESULT?Abnormal?1+ Enterobacter cloacae complexMay develop resistance during prolonged therapy with 3rd-generation cephalosporins as a result of derepression of AmpC beta-lactamase. ?Therefore, isolates that are initially susceptible may become resistant within 3 to 4 days after initiation of therapy. ?Testing repeat isolates may be warranted. Oral cephalosporins are also not recommended.1+ Mixed luis enrique presentMixed Luis Enrique; No Staphylococcus aureus, beta- Strep, Strep. pneumoniae, or Pseudomonas aeruginosa GRAM STAIN ?1+ Epithelial cellsNo RBCsNo PMNsNo organisms seen Resulting Agency:?[facility] Susceptibility Enterobacter cloacae complexNot SpecifiedCEFAZOLIN>=32RCEFE PIME<=0.12SCEFTAZIDIME<=0.5S?1CEFTRIAXONESee below?1 CIPROFLOXACIN<=0.06SGENTAMICIN<=1SLEVOFLOXACIN<=0.12SMEROPENEM<=0.25SPIPERACILLI N/TAZO<=4STRIMETHOPRIM/SULF<=1/19S?1see organism-specific comment above Exam Narrative: Exam Narrative: She is alert and appears in no distress. Mood and affect are bright. Right leg and ankle are examined. Erythema and swelling are much improved. Wound VAC is still in place draining a bloody fluid. She has intact pedal pulses. Good capillary refill. Good sensation. Const: Vital Signs, click to edit/add: Vital Signs - 24 hr 03/31/24 11:48 03/31/24 15:00 03/31/24 15:00 Temperature 98.4 F Pulse Rate 84 Pulse Rate [Right Pulse Oximeter] 92 Respiratory Rate 18 Blood Pressure [Ri ght Arm] 166/93 H Pulse Oximetry 93 95 Oxygen Delivery Me thod Room Air 03/31/24 15:00 03/31/24 15:00 03/31/24 19:49 Temperature 98.5 F 98.2 F Pulse Rate Pulse Rate [Right Pulse Oximeter] 89 89 90 Respiratory Rate 18 18 20 Blood Pressure [Ri ght Arm] 155/88 H 160/72 H Pulse Oximetry 95 94 Oxygen Delivery Me thod Room Air Room Air 03/31/24 23:00 03/31/24 23:10 03/31/24 23:30 Temperature 98.7 F Pulse Rate Pulse Rate [Right Pulse Oximeter] 85 85 Respiratory Rate 18 18 Blood Pressure [Ri ght Arm] 154/77 H Pulse Oximetry 94 94 Oxygen Delivery Me thod Room Air 03/31/24 23:54 04/01/24 03:00 04/01/24 07:00 Temperature 98.5 F Pulse Rate 86 81 Pulse Rate [Right Pulse Oximeter] 85 Respiratory Rate 18 Blood Pressure [Ri ght Arm] 162/93 H Pulse Oximetry 91 Oxygen Delivery Me thod Room Air 04/01/24 07:00 04/01/24 07:00 04/01/24 07:00 Temperature 98.1 F Pulse Rate Pulse Rate [Right Pulse Oximeter] 84 84 Respiratory Rate 16 16 Blood Pressure [Ri ght Arm] 164/83 H Pulse Oximetry 93 93 Oxygen Delivery Me thod Room Air Documenting provider has reviewed patient's vital signs: yes
[2024-04-01 11:00] VITALS: BP 149/81; PULSE 84; RESP 16; TEMP 36.9; O2SAT 93
--- NOTE | 2024-04-01 14:14 | PC.SOCIAL ---
Addendum entered by ADELIA Coronado 04/01/24 15:38: Discharge planning: ceramic worker met with pt again this afternoon to tell her the below information listed that this worker found out from Lupe in Patient Account Services. When this worker went back to the room the pt had several family members and friends in the room visiting and this worker asked if there was any family or friends that could help the pt pay her premiums owed sooner than next Friday when pt is supposed to get her next paycheck and pay the premiums due. ceramic worker even asked about the possibility of family or friends paying the premiums for the pt and then the pt paying them back when she gets paid next Friday. Pt and her visitors said they would talk about options this evening together. Pt is also going to call [facility] customer service to confirm with them that if she pays her premiums dating back to November 09, that is will make her [employer] insurance active again starting November 09 through the present, although pt has been telling hospital staff the whole time she has been admitted to the hospital that when she pays her medical insurance premiums her health insurance will be active again. ceramic worker will plan to check in with the pt tomorrow. Social work to follow-up as needed. Addendum entered by ADELIA Coronado 04/01/24 15:05: Discharge planning: ceramic worker spoke to Lupe in Patient Account Services and she reviewed the pt's chart and past UCARE insurance through [facility] and she shared with this worker that if the pt follows through with paying her premiums for UCARE next Friday, the pt will not need to complete a new MA application for a denial in order to be considered for the financial assistance program through the hospital; however, if the pt does not pay her medical insurance premiums next Friday and her insurance stays inactive, the Patient Account Services Department will need to see a new MA application with a denial in order for the pt to qualify for the financial assistance program through the hospital. ceramic worker will let the pt know all of this information, as well. For right now, this worker will suggest that the pt not fill out a new MA application since she states that she plans to pay her [employer] premiums next week on Friday with her next paycheck. Social work to follow-up as needed. Original Note: Discharge planning: ceramic worker met with pt today in her room to discuss discharge planning and financial assistance. Pt did not remember this worker visiting her the other day on Friday(03/30/24) in her hospital room. ceramic worker assisted the pt with completing the Financial Assistance application form for the hospital. Pt does also need to show a Medical Assistance application denial in order to qualify for financial assistance from the hospital. ceramic worker will assist the pt with filling out the MA application later this afternoon. Pt will most likely get denied for MA due to being over income, which would mean that she would hopefully qualify for financial assistance from the hospital. ceramic worker was also in the room with the pt when she called the Patient Account Representatives Department here at the hospital to ask more questions about the financial assistance through the hospital, but pt had to leave a message. Pt shared that she gets paid next Friday and plans to pay her [facility] premiums then, which is about $500.00 per the pt, which would make her [facility]/[place] [facility] active again. Social work to follow-up as needed.
[2024-04-01 15:00] VITALS: BP 150/99; PULSE 84; PULSE 90; RESP 16; TEMP 37; O2SAT 97
[2024-04-01] MEDS: INSULIN ASPART 100 UNIT/ML SUBCUT (18:31)
[2024-04-01 19:00] VITALS: PULSE 86; RESP 16; TEMP 36.8; O2SAT 97
[2024-04-01] MEDS: SODIUM CHLORIDE 0.9 % (FLUSH) 10 ML SYRINGE 5 ML IVF (20:37)
[2024-04-01] MEDS: ROPINIROLE HCL 1 MG TABLET PO (20:38)
[2024-04-01] MEDS: ATORVASTATIN CALCIUM 40 MG TABLET 80 MG PO (20:39)
[2024-04-01] MEDS: PRAZOSIN HCL 1 MG CAPSULE 6 MG PO (20:39)
[2024-04-01] MEDS: risperiDONE 1 MG TABLET 3 MG PO (20:40)
[2024-04-01] MEDS: INSULIN GLARGINE,HUM.REC.ANLOG 100 UNIT/ML INSULN.PEN 25 UNIT SUBCUT (20:41)
--- NOTE | 2024-04-01 22:29 | PC.NURSE ---
Right ankle remains wrapped with woody and wound vac in place. Patient complains of 8/10 pain in her right ankle. Oxycodone given PRN. Encouraged patient to elevate right lower extremity whenever possible. Afebrile this shift. Antibiotics given in left arm PICC without any complication.
[2024-04-02 00:40] VITALS: BP 160/80; PULSE 84; PULSE 86; RESP 16; RESP 18; TEMP 37; O2SAT 92
[2024-04-02] MEDS: OXYCODONE 5 MG TABLET PO ×2 (00:48→06:11)
[2024-04-02 04:15] VITALS: BP 178/89; PULSE 93; RESP 24; TEMP 36.7; O2SAT 93
[2024-04-02] MEDS: CEFEPIME HCL 2 GM in 0.9 % SODIUM CHLORIDE Mini-bag 100 ML IVPB (04:24)
[2024-04-02] MEDS: SODIUM CHLORIDE 0.9 % (FLUSH) 10 ML SYRINGE 5 ML IVF (04:24)
[2024-04-02] MEDS: ACETAMINOPHEN 650 MG TABLET ER 1300 MG PO (04:35)
[2024-04-02] MEDS: OMEPRAZOLE 20 MG CAPSULE DR 40 MG PO (06:12)
--- NOTE | 2024-04-02 06:59 | PC.NURSE ---
END OF SHIFT NOTE: PT PLEASANT AND A&Ox4. DENIES CP, SOB, N/V. AMBULATES WITH SBA D/T WOUND VAC ON RIGHT ANKLE. VSS ON RA; AFEBRILE. PT C/O PAIN TO RIGHT ANKLE 6-02/17. PT SLEPT ON AND OFF DURING HS. CALL LIGHT WITHIN PT?S REACH.?
[2024-04-02 08:45] VITALS: O2SAT 93
[2024-04-02 08:49] VITALS: BP 130/71; PULSE 86; RESP 18; TEMP 36.8; O2SAT 93
[2024-04-02] MEDS: INSULIN ASPART 100 UNIT/ML SUBCUT ×2 (08:51→11:18)
[2024-04-02] MEDS: INSULIN ASPART 100 UNIT/ML 12 UNIT SUBCUT ×2 (08:51→11:22)
[2024-04-02] MEDS: lamoTRIgine 100 MG TABLET 400 MG PO (08:52)
[2024-04-02] MEDS: GLIMEPIRIDE 4 MG TABLET 8 MG PO (08:52)
[2024-04-02] MEDS: MAGNESIUM OXIDE 400 MG TABLET PO (08:53)
[2024-04-02] MEDS: ASPIRIN 81 MG TAB.CHEW PO (08:53)
[2024-04-02] MEDS: hydrOXYzine pamoate 25 MG CAPSULE 100 MG PO (08:53)
[2024-04-02] MEDS: FLUOXETINE HCL 20 MG CAPSULE 40 MG PO (08:53)
[2024-04-02] MEDS: lisinopriL 5 MG TABLET PO (08:54)
--- NOTE | 2024-04-02 10:01 | PC.SOCIAL ---
Discharge planning: pressed or blown glass worker met with pt this morning to check-in to see if she and her family were able to come up with a plan for paying pt's past due insurance premiums. Pt said that her family is not able to assist her financially right now and she will have to wait to pay her premiums next Friday when she gets paid. Pt stated that she called [facility] this morning at 8am to find out the exact amount that she owes to [facility] for her past due premiums and she shared that she had to leave a message. pressed or blown glass worker then called [facility] using the hospital NPI# and confirmed that the pt pays $171.00 a month for her premium and currently owes $713.00. Social work to follow-up as needed.
[2024-04-02] MEDS: ERTAPENEM 1 GM in 0.9 % SODIUM CHLORIDE Mini-bag 100 ML IVPB (10:42)
--- NOTE | 2024-04-02 13:42 | PM.DS1 ---
DS: Providers Provider Date Seen: 04/02/24 Date of admission: 03/29/24 15:55 Primary care physician: Not a Local Provider Admitting Clinician: Louann Farmer MD Consults: 03/30/24 10:16 Consult to Infectious Diseases [CONS] Routine Comment: Consulting Provider: [facility] Consult priority: Urgent Has provider been notified: Yes Call back required?: Yes Attending Physician on discharge: Louann Farmer MD DS: Summary Hospital Course Hospital Course: 53 yo F w numerous comorbidities as noted below, s/p right ankle fracture, s/p ORIF, c/b MSSA infection, s/p multiple I&D's and hardware removal readmitted to [facility] ([place]) on 03/29/24 with concerns for infection. Past medical history notable for DM, HTN, CAD/h/o [place], COPD, depression, anxiety at a less, Ortho/ID HX: S/p mechanical fall c/b right trimalleolar closed, displaced ankle fracture on 09/25/2023 for which he underwent ORIF with Dr. Ponce on [facility] 10/03/2023. A plate and several screws has been placed. She was lost to follow-up and ultimately presented on 11/04 with concerns for right ankle infection with a surgical wound draining pus. RTOR for I&D and washout on 11/05. Purulent drainage noted with a sinus tract in the distal third of the incision communicating with a distal fibula plate. She was discharged on 2 weeks of doxycycline. Again she was lost for follow-up and has been reevaluated on 03/19/2024 with 2 weeks of purulent drainage from the right ankle. Wound cultures obtained. Since patient was HDS antibiotics were held. She ultimately underwent I&D and hardware removal on 03/22/[address] Hess. Gross purulence down to the bone has been noted intraoperatively. Since preoperative cultures has been grown MSSA patient was discharged on Keflex to complete 2 weeks of therapy. Around 03/27 she noted increased purulent drainage from the lateral ankle wound prompting her going to [place] ED. Right ankle CT showed subsequent removal of plate and screws from distal fibula majority of over the fracture without broad healing. Fluid within the soft tissue deep to the wound extensive the lateral and anterior aspects of the fibula. No ankle joint effusion. She was given Unasyn and has been advised to follow-up with Ortho. Readmitted on 03/29 and started on vancomycin/Zosyn. Now s/p I&D and wound VAC placement on 03/[address] Godwin. Purulence noted. Wound and bone cultures has been obtained. Micro: Right ankle wound culture 11/05: MSSA; anaerobic cultures: Negative. Right ankle wound culture 03/19: MSSA and coag negative staph. Right ankle wound culture 03/22: MSSA. Ankle wound culture at [facility] 03/28: Enterobacter cloacae complex resistant to cefazolin. Blood cultures 03/29: NGTD. MRSA screen 03/29: Pending OR cultures 03/29: Right fibula bone - 2 sets: Aerobic and anaerobic: Pending, negative at 3 days April 02: Patient is had continuous improvement in the appearance of her right leg and ankle. Erythema and edema or much better. Wound VAC has been in place but removed today. By secondhand report from surgery the wound looks good. Blood sugar control has been quite good during her hospital stay. Discussion with ID consult today: Outpatient ertapenem 1 g daily for total of 6 weeks of therapy. This will be through May 10. Therapy Plan may be changed if cultures eventually grow organisms not covered by ertapenem. At this point cultures from surgery 3 days ago are negative. Ertapenem therapy is based on cultures from [facility] last week, MSSA, and [facility], Enterobacter cloaca complex, on the 28 of March. Status at Discharge Functional status at discharge: independent ambulation Overall status at discharge: patient is progressing back to baseline Time Spent with Patient Time attestation: Total time spent providing and/or coordinating discharge services: 50 minutes Exam Narrative: Exam Narrative: She is alert pleasant and in no distress. Right leg is examined. Minimal erythema and edema around her lateral leg and ankle. Wound VAC remains in place at the time of my exam. Intact pulses and sensation in her foot. Const: Vital Signs, click to edit/add: Vital Signs - 24 hr 04/01/24 15:00 04/01/24 15:04/01/24 15:00 Temperature Pulse Rate 90 Pulse Rate [Right Pulse Oximeter] 84 Respiratory Rate 16 Blood Pressure [Ri ght Arm] Pulse Oximetry 97 Oxygen Delivery Me thod 04/01/24 15:00 04/01/24 19:00 04/02/24 00:40 Temperature 98.6 F 98.3 F Pulse Rate 84 Pulse Rate [Right Pulse Oximeter] 90 86 Respiratory Rate 16 16 Blood Pressure [Ri ght Arm] 150/99 H Pulse Oximetry 97 97 Oxygen Delivery Me thod Room Air Room Air 04/02/24 00:40 04/02/24 00:40 04/02/24 00:40 Temperature 98.6 F Pulse Rate Pulse Rate [Right Pulse Oximeter] 86 86 Respiratory Rate 16 18 Blood Pressure [Ri ght Arm] 160/80 H Pulse Oximetry 92 92 Oxygen Delivery Me thod Room Air 04/02/24 04:15 04/02/24 08:45 04/02/24 08:49 Temperature 98.1 F 98.2 F Pulse Rate Pulse Rate [Right Pulse Oximeter] 93 86 Respiratory Rate 24 18 Blood Pressure [Ri ght Arm] 178/89 H 130/71 Pulse Oximetry 93 93 93 Oxygen Delivery Me thod Room Air Room Air Documenting provider has reviewed patient's vital signs: yes DS: Data Data Completed and Pending Labs on day of discharge: Preliminary micro results at discharge 03/29/24 18:13 Blood Culture - Preliminary Blood NO GROWTH AFTER 72 HOURS 03/29/24 18:13 Blood Culture - Preliminary Blood NO GROWTH AFTER 72 HOURS Discharge Plan Discharge Disposition: Home, Self-Care Date of Admission: 03/29/24 15:55 Attending Provider on Discharge: William Mario Consulting Providers: Eusebia Pradhan; Sina Jose; Cheryl Romero; Yony Lane; Devan Benito; Kimberly Romero; Fartun Chong; Dee Shanks Primary Care Provider: Provider,Not a Local Condition: Improved Anticipated Discharge Date/Time: 04/02/24 11:00 Discharge Medications: Continued dextroamphetamine-amphetamine 30 mg tablet 1 tab PO BID insulin aspart U-100 [Novolog U-100 Insulin aspart] 100 unit/mL solution 12 unit subcut TIDWM potassium chloride 10 mEq tablet extended release 10 meq PO DAILY ropinirole 3 mg tablet 3 mg PO HS (DME) insulin syringe-needle U-100 [BD Insulin Syringe Ultra-Fine] 1 mL 31 gauge x 5/16 syringe See Rx Instructions .ROUTE .MEDSUPPLY Qty: 10 Patient Comments: [NO ORIGINAL SIG] Rx Instructions: As directed insulin glargine [Basaglar KwikPen U-100 Insulin] 100 unit/mL (3 mL) insulin pen 32 unit subcut HS nystatin 100,000 unit/gram powder 1 applic topical 3XD nitroglycerin 0.4 mg tablet, sublingual 0.4 mg sublingual Q5M PRN lamotrigine [Lamictal] 200 mg tablet 400 mg PO DAILY lisinopril 5 mg tablet 5 mg PO DAILY fluoxetine 40 mg capsule 40 mg PO BID atorvastatin 80 mg tablet 80 mg PO HS pantoprazole [Protonix] 40 mg tablet,delayed release (DR/EC) 40 mg PO DAILY hydroxyzine pamoate 100 mg capsule 100 mg PO TID PRN prazosin [Minipress] 1 mg capsule 1 mg PO HS prazosin [Minipress] 5 mg capsule 5 mg PO HS glimepiride 4 mg tablet 8 mg PO DAILY risperidone 3 mg tablet 3 mg PO HS magnesium oxide 400 mg (241.3 mg magnesium) tablet 400 mg PO BID Rx Instructions: X 4 DAYS aspirin [Adult Aspirin Regimen] 81 mg tablet,delayed release (DR/EC) 81 mg PO DAILY albuterol sulfate [Ventolin HFA] 90 mcg/actuation HFA aerosol inhaler 2 inh inhalation QID PRN oxycodone 5 mg tablet 5 mg PO Q6H PRN Discontinued cephalexin 500 mg capsule 500 mg PO QID Qty: 56 0RF Rx Instructions: 500 mg p.o. q.i.d. times 14 days Discharge Orders: Discharge Order (Routine); Ordered 04/02/24 Ordered By: William Mario Patient Education: How to Care for Your PICC (Peripherally Inserted Central Catheter) (DC), Incision and Drainage (DC) Additional Instructions: Return to [facility] every day for IV antibiotics, ertapenem. Continue this through May 10. Starting tomorrow FridayApril 03 you need to come Medical/Surgical unit here at the hospital at 1 pm for your infusion. You will then return on FridayApril 04 to the same location and time. Then starting on FridayApril 05 [facility] 1 pm and they will coordinator the rest of your appointments through . Activity Level: Activity as Tolerated Discharge Diet: Diabetic Follow Up Appointments: Provider,Not a Local [Primary Care Provider] - Forms: MyHealth Info Instructions
--- NOTE | 2024-04-02 14:04 | PC.NURSE ---
Discharge: The patient discharged home with her daughter, grandson and friend. The patient left with her PICC in [facility]. The patient was given instruction to return to the unit tomorrow and Friday for outpatient ABX infusion. Given discharge intructions regarding S/S of infection of R ankle after I/D. All questions were answered. Tisha CARR BSN
--- NOTE | 2024-04-20 12:03 | W.ANESCHARGE ---
Anesthesia Charges Start Date/Time Anesthesia Start Date: 03/30/24 Anesthesia Start Time: 07:22 Stop Date/Time Anesthesia Stop Date: 03/30/24 Anesthesia Stop Time: 09:12
--- NOTE | 2024-04-20 12:20 | W.ANESCHARGE ---
Anesthesia Charges Start Date/Time Anesthesia Start Date: 03/30/24 Anesthesia Start Time: 07:22 Stop Date/Time Anesthesia Stop Date: 03/30/24 Anesthesia Stop Time: 09:12
[2024-05-01 11:09] VITALS: BP 136/73; PULSE 92; RESP 18; O2SAT 93
== END 2024-04-02 12:09 | disposition home or self-care (01) | DRG 464 ==
PROVIDERS: Family Medicine; Orthopaedic Surgery; Admitting Provider Family Medicine; Visit Provider Family Medicine
PROC: 0QBJ0ZZ Excision of Right Fibula, Open Approach (ICD-10-PCS; principal; 2024-03-30 07:15)
DX: M86.161 Other acute osteomyelitis, right tibia and fibula (principal); F33.1 Major depressive disorder, recurrent, moderate; S82.61XK Displaced fracture of lateral malleolus of right fibula, subsequent encounter for closed fracture with nonunion; T81.49XA Infection following a procedure, other surgical site, initial encounter; F12.20 Cannabis dependence, uncomplicated; B95.2 Enterococcus as the cause of diseases classified elsewhere; S82.841G Displaced bimalleolar fracture of right lower leg, subsequent encounter for closed fracture with delayed healing; E66.9 Obesity, unspecified; J44.9 Chronic obstructive pulmonary disease, unspecified; I10 Essential (primary) hypertension; Z91.199 Patient's noncompliance with other medical treatment and regimen due to unspecified reason; B95.61 Methicillin susceptible Staphylococcus aureus infection as the cause of diseases classified elsewhere; E04.1 Nontoxic single thyroid nodule; E11.65 Type 2 diabetes mellitus with hyperglycemia; Z79.4 Long term (current) use of insulin; I25.10 Atherosclerotic heart disease of native coronary artery without angina pectoris; E03.9 Hypothyroidism, unspecified; G25.81 Restless legs syndrome; F40.01 Agoraphobia with panic disorder; F43.10 Post-traumatic stress disorder, unspecified; F60.9 Personality disorder, unspecified; Z68.35 Body mass index [BMI] 35.0-35.9, adult
CPT/HCPCS: 01462; 01470; 01480; 36415; 36573; 71046; 80048; 80053; 82962; 83036; 83605; 84703; 85025; 86140; 87040; 87070; 87075; 87081; 87205; 88304; 88312; 93005; 94761; A4221; A9270; C1751; J0692; J1100; J1335; J1815; J2250; J2371; J2543; J2704; J3010; J3372; J7030; J7120

== ENCOUNTER 2024-05-11 12:39 | Outpatient (CLI) | payer OTHER, SELFPAY | END 2024-05-11 12:40 | disposition home or self-care (01) | LOC: WOUND 12:40 | PROVIDERS: Visit Provider Nurse Practitioner Family | DX: T81.31XA Disruption of external operation (surgical) wound, not elsewhere classified, initial encounter (principal); E11.622 Type 2 diabetes mellitus with other skin ulcer; Z79.4 Long term (current) use of insulin | CPT/HCPCS: 11042; G0463 ==

== ENCOUNTER 2024-05-18 09:11 | Outpatient (CLI) | payer OTHER, SELFPAY | END 2024-05-18 09:12 | disposition home or self-care (01) | LOC: WOUND 09:11 | PROVIDERS: Visit Provider Nurse Practitioner Family | DX: E11.622 Type 2 diabetes mellitus with other skin ulcer (principal); L97.318 Non-pressure chronic ulcer of right ankle with other specified severity; Z79.4 Long term (current) use of insulin; Z79.84 Long term (current) use of oral hypoglycemic drugs | CPT/HCPCS: 11042 ==

== ENCOUNTER 2024-05-18 10:25 | Outpatient (RCR) | payer OTHER, SELFPAY ==
[2024-04-03] MEDS: ERTAPENEM 1 GM in 0.9 % SODIUM CHLORIDE Mini-bag 100 ML IVPB (13:04)
[2024-04-03 13:09] VITALS: BP 94/62; PULSE 64; RESP 24; TEMP 36.6; O2SAT 91
[2024-04-04 13:09] VITALS: BP 98/48; PULSE 93; RESP 20; TEMP 37.3; O2SAT 98
[2024-04-04] MEDS: ERTAPENEM 1 GM in 0.9 % SODIUM CHLORIDE Mini-bag 100 ML IVPB (13:19)
--- NOTE | 2024-04-04 14:49 | PC.NURSE ---
Outpatient infusion-- Pleasant and cooperative, alert and oriented patient was given Ertapenum via Picc line and tolerated it well. VSS, though mildly hypotensive at 90's/40's and tachycardic with heart rate in mid 90s. SPO2>90% on RA. Pt c/o blood shadowing on her surgical dressing. Foot was noted to be purple. Pedal pulses were normal with palpation. Cap refill >3 sec. Area was outlined and foot was elevated. With elevation, color on foot returned to normal and pt stated that was normal for her. Pt advised to contact ortho if she has continuing issues.
[2024-04-05 13:25] VITALS: BP 102/62; PULSE 96; RESP 16; TEMP 37.7; O2SAT 92
[2024-04-05 14:18] LABS: SARS PCR* POSITIVE SARS-CoV-2 (Negative)
[2024-04-05] MEDS: ERTAPENEM 1 GM in 0.9 % SODIUM CHLORIDE Mini-bag 100 ML IVPB (14:45)
[2024-04-05] MEDS: SODIUM CHLORIDE 0.9 % (FLUSH) 10 ML SYRINGE IVF (14:45)
[2024-04-05 14:47] VITALS: BP 125/83; PULSE 98; RESP 18; TEMP 36.9; O2SAT 94
--- NOTE | 2024-04-05 16:14 | ONC.NURNOTE ---
Patient in clinic today for IV Ertapenem, on arrival when vitals being complete patient had a forehead temp of 99.5, oral temp checked and patient was at 100.0. RN asked patient if she felt like she had a fever and she replied yes. Asked how long she has felt like she has had a fever and patient reported since yesterday (Wednesday 04/04). I feel like I am getting a cold. Patient reports feeling congested. RN moved patient to private room and spoke with Alda Cotton APRN. Alda ordered a SARS test for patient. Nasal swab done by RN from Med/Surg. Patient's results are positive for COVID. Call placed to Med/Surg for patient to have her IV antibiotic done today. RN updated patient that COVID test is positive and that she will need to have infusion done on Med/Surg until 04/15. Also advised patient that she needed to contact her PCP to let them know she is positive. Patient verbalized understanding. RN transferred patient to [place] [id number] on Med/Surg per their request.
[2024-04-06 12:55] VITALS: BP 88/51; PULSE 80; TEMP 37.1; O2SAT 94
[2024-04-06] MEDS: ERTAPENEM 1 GM in 0.9 % SODIUM CHLORIDE Mini-bag 100 ML IVPB (12:58)
[2024-04-06] MEDS: SODIUM CHLORIDE 0.9 % (FLUSH) 10 ML SYRINGE IVF (12:58)
[2024-04-06 13:43] VITALS: BP 106/67
--- NOTE | 2024-04-06 14:45 | PC.NURSE ---
Outpatient infusion-- Pleasant and cooperative, alert and oriented patient was given an antibiotic infusion. VSS and pt is afebrile, however, patient was initially hypotensive with B/P 88/50s. Pt remained asymptomatic. SPO2 >94% on RA. Infusion was completed and B/P was rechecked at 106/60s. Dressing to picc line was changed by LILLY Perez with LILLY Solis and this nurse observing and pt tolerated it well.
[2024-04-07 12:24] VITALS: BP 113/72; PULSE 83; RESP 16; TEMP 36.6; O2SAT 91
[2024-04-07] MEDS: ERTAPENEM 1 GM in 0.9 % SODIUM CHLORIDE Mini-bag 100 ML IVPB (12:27)
[2024-04-08] MEDS: SODIUM CHLORIDE 0.9 % (FLUSH) 10 ML SYRINGE IVF (11:58)
[2024-04-08] MEDS: ERTAPENEM 1 GM in 0.9 % SODIUM CHLORIDE Mini-bag 100 ML IVPB (11:58)
[2024-04-08 12:05] VITALS: BP 112/72; PULSE 93; RESP 18; TEMP 36.8; O2SAT 94
[2024-04-08] MEDS: 0.9 % SODIUM CHLORIDE 250 ml IV (12:10)
--- NOTE | 2024-04-08 12:47 | PC.NURSE ---
Pt pleasant and cooperative. Infusion complete without complication. New Mepilex to out right ankle; surgical site is draining causing bandage to fall off. Per pt RADHA Fernandes to see her at Fridays infusion appointment.
[2024-04-09 12:38] VITALS: BP 123/75; PULSE 88; RESP 18; TEMP 36.7; O2SAT 94
[2024-04-09] MEDS: ERTAPENEM 1 GM in 0.9 % SODIUM CHLORIDE Mini-bag 100 ML IVPB (12:45)
[2024-04-09] MEDS: SODIUM CHLORIDE 0.9 % (FLUSH) 10 ML SYRINGE IVF ×2 (12:45→13:26)
[2024-04-09] MEDS: 0.9 % SODIUM CHLORIDE 250 ml IV (12:46)
[2024-04-10 11:00] VITALS: BP 130/71; PULSE 94; RESP 18; TEMP 36.8; O2SAT 94
[2024-04-10] MEDS: ERTAPENEM 1 GM in 0.9 % SODIUM CHLORIDE Mini-bag 100 ML IVPB (12:07)
[2024-04-10] MEDS: SODIUM CHLORIDE 0.9 % (FLUSH) 10 ML SYRINGE IVF (12:07)
[2024-04-10] MEDS: 0.9 % SODIUM CHLORIDE 250 ml IV (12:07)
[2024-04-11 11:00] VITALS: BP 116/68; PULSE 91; RESP 18; TEMP 36.7; O2SAT 91
[2024-04-11] MEDS: SODIUM CHLORIDE 0.9 % (FLUSH) 10 ML SYRINGE IVF (12:41)
[2024-04-11] MEDS: ERTAPENEM 1 GM in 0.9 % SODIUM CHLORIDE Mini-bag 100 ML IVPB (12:41)
--- NOTE | 2024-04-11 15:34 | PC.NURSE ---
Patient here for outpatient antibiotics. PICC line in left arm had positive blood return and flushed without complication. Antibiotic infused without any reaction. Patient escorted to front entrance via daughter and wheelchair.
[2024-04-12 11:00] VITALS: BP 101/68; PULSE 92; RESP 18; TEMP 36.7; O2SAT 92
[2024-04-12] MEDS: ERTAPENEM 1 GM in 0.9 % SODIUM CHLORIDE Mini-bag 100 ML IVPB (12:21)
[2024-04-12] MEDS: SODIUM CHLORIDE 0.9 % (FLUSH) 10 ML SYRINGE IVF (12:22)
--- NOTE | 2024-04-12 13:31 | PC.NURSE ---
Patient arrived to [facility] to complete outpatient IV antibiotics. PICC in left arm flushed without complication and positive blood return was received. Antibiotics infused without complication. Will plan to return tomorrow for same infusion on the med/surg floor.
[2024-04-13 12:20] VITALS: BP 116/67; PULSE 95; RESP 18
[2024-04-13] MEDS: ERTAPENEM 1 GM in 0.9 % SODIUM CHLORIDE Mini-bag 100 ML IVPB (12:44)
--- NOTE | 2024-04-13 13:14 | PC.NURSE ---
Outpatient infusion of abx. PICC line dressing changed was completed with no issues. Labeled with initials date and time. Blood return before flushing the line. Tisha CARR BSN
[2024-04-14] MEDS: ERTAPENEM 1 GM in 0.9 % SODIUM CHLORIDE Mini-bag 100 ML IVPB (12:25)
[2024-04-14 12:30] VITALS: BP 132/90; PULSE 90; RESP 18; TEMP 36.9; O2SAT 93
[2024-04-14] MEDS: SODIUM CHLORIDE 0.9 % (FLUSH) 10 ML SYRINGE IVF (12:30)
[2024-04-14] MEDS: 0.9 % SODIUM CHLORIDE 250 ml IV (12:30)
[2024-04-15 12:03] VITALS: BP 148/112; PULSE 95; RESP 18; O2SAT 95
[2024-04-15] MEDS: ERTAPENEM 1 GM in 0.9 % SODIUM CHLORIDE Mini-bag 100 ML IVPB (12:05)
--- NOTE | 2024-04-15 12:07 | PC.NURSE ---
Presented to Med/surg for ABX infusion in [facility]. Flushed with 10 cc and blood return was obtained. Infusing ABX with no issues at this time. Tisha CARR BSN
[2024-04-16 11:45] VITALS: BP 125/73; PULSE 87; RESP 16; TEMP 36; O2SAT 92
[2024-04-16] MEDS: ERTAPENEM 1 GM in 0.9 % SODIUM CHLORIDE Mini-bag 100 ML IVPB (11:58)
[2024-04-16] MEDS: 0.9 % SODIUM CHLORIDE 250 ml IV (11:59)
[2024-04-16] MEDS: SODIUM CHLORIDE 0.9 % (FLUSH) 10 ML SYRINGE IVF (11:59)
[2024-04-17 12:50] VITALS: BP 117/69; PULSE 87; RESP 16; TEMP 36.4; O2SAT 92
[2024-04-17] MEDS: ERTAPENEM 1 GM in 0.9 % SODIUM CHLORIDE Mini-bag 100 ML IVPB (12:56)
--- NOTE | 2024-04-17 13:27 | PC.NURSE ---
Patient presented via W/C accompanied by a friend. VSS and afebrile. No c/o pain. Right lateral ankle dressing changed d/t drainage (telfa placed & wrapped with Coban d/t tape allergy). LUE PICC patent and dressing intact. Pt tolerated Ertapenem infusion without complications. Discharged from the unit at 1327 via W/C.
[2024-04-18 12:47] VITALS: BP 121/76; PULSE 85; RESP 18; TEMP 36.4; O2SAT 93
[2024-04-18] MEDS: ERTAPENEM 1 GM in 0.9 % SODIUM CHLORIDE Mini-bag 100 ML IVPB (12:51)
[2024-04-18] MEDS: SODIUM CHLORIDE 0.9 % (FLUSH) 10 ML SYRINGE IVF (12:51)
--- NOTE | 2024-04-18 13:08 | PC.NURSE ---
Infusing: IV abx infusing in PHILLIP PICC. VSS on RA. See MAR for abx and administration. Tisha CARR BSN
[2024-04-19 10:45] VITALS: BP 133/83; PULSE 93; RESP 14; TEMP 36.4; O2SAT 94
[2024-04-19] MEDS: 0.9 % SODIUM CHLORIDE 250 ml IV (11:04)
[2024-04-19] MEDS: ERTAPENEM 1 GM in 0.9 % SODIUM CHLORIDE Mini-bag 100 ML IVPB (11:04)
[2024-04-19] MEDS: SODIUM CHLORIDE 0.9 % (FLUSH) 10 ML SYRINGE IVF (11:05)
--- NOTE | 2024-04-19 11:46 | ONC.NURNOTE ---
Patient and friend informed that the dressing [facility] not [facility] Also informed they need to go purchase dressings needed for dressing change. Pts friend states there is cleaning product at pts home to do at time of dressing changes.
[2024-04-20] MEDS: SODIUM CHLORIDE 0.9 % (FLUSH) 10 ML SYRINGE IVF (11:22)
[2024-04-20] MEDS: ERTAPENEM 1 GM in 0.9 % SODIUM CHLORIDE Mini-bag 100 ML IVPB (11:22)
[2024-04-20] MEDS: 0.9 % SODIUM CHLORIDE 250 ml IV (11:22)
[2024-04-21 12:03] VITALS: BP 122/90; PULSE 97; RESP 16; TEMP 35.9; O2SAT 94
[2024-04-21] MEDS: ERTAPENEM 1 GM in 0.9 % SODIUM CHLORIDE Mini-bag 100 ML IVPB (12:14)
[2024-04-21] MEDS: 0.9 % SODIUM CHLORIDE 250 ml IV (12:15)
[2024-04-21] MEDS: SODIUM CHLORIDE 0.9 % (FLUSH) 10 ML SYRINGE IVF (12:15)
[2024-04-22 11:39] VITALS: BP 142/85; PULSE 96; RESP 16; TEMP 36.1; O2SAT 94
[2024-04-22] MEDS: SODIUM CHLORIDE 0.9 % (FLUSH) 10 ML SYRINGE IVF (11:49)
[2024-04-22] MEDS: ERTAPENEM 1 GM in 0.9 % SODIUM CHLORIDE Mini-bag 100 ML IVPB (11:49)
[2024-04-22] MEDS: 0.9 % SODIUM CHLORIDE 250 ml IV (11:49)
[2024-04-23] MEDS: SODIUM CHLORIDE 0.9 % (FLUSH) 10 ML SYRINGE IVF (13:29)
[2024-04-23] MEDS: 0.9 % SODIUM CHLORIDE 250 ml IV (13:29)
[2024-04-23] MEDS: ERTAPENEM 1 GM in 0.9 % SODIUM CHLORIDE Mini-bag 100 ML IVPB (13:30)
[2024-04-24 11:23] VITALS: BP 96/70; PULSE 97; RESP 16; TEMP 36.4; O2SAT 93
[2024-04-24] MEDS: 0.9 % SODIUM CHLORIDE 250 ml IV (11:40)
[2024-04-24] MEDS: SODIUM CHLORIDE 0.9 % (FLUSH) 10 ML SYRINGE IVF (11:40)
[2024-04-24] MEDS: ERTAPENEM 1 GM in 0.9 % SODIUM CHLORIDE Mini-bag 100 ML IVPB (11:41)
--- NOTE | 2024-04-24 12:31 | PC.NURSE ---
Antibiotic infused without difficulty. VS WNL. Pt ambulated independently off unit with a friend. She plans to return tomorrow for next infusion.
[2024-04-25] MEDS: ERTAPENEM 1 GM in 0.9 % SODIUM CHLORIDE Mini-bag 100 ML IVPB (11:46)
[2024-04-25] MEDS: SODIUM CHLORIDE 0.9 % (FLUSH) 10 ML SYRINGE IVF (11:47)
[2024-04-25] MEDS: 0.9 % SODIUM CHLORIDE 250 ml IV (11:50)
[2024-04-25 11:56] VITALS: BP 163/84; PULSE 99; RESP 16; TEMP 36.6; O2SAT 95
[2024-04-26 11:50] VITALS: BP 135/82; PULSE 89; RESP 18; TEMP 35.8; O2SAT 94
[2024-04-26] MEDS: 0.9 % SODIUM CHLORIDE 250 ml IV (11:51)
[2024-04-26] MEDS: SODIUM CHLORIDE 0.9 % (FLUSH) 10 ML SYRINGE IVF (11:51)
[2024-04-26] MEDS: ERTAPENEM 1 GM in 0.9 % SODIUM CHLORIDE Mini-bag 100 ML IVPB (12:00)
[2024-04-27 11:16] VITALS: BP 158/85; PULSE 94; RESP 18; TEMP 36.3; O2SAT 93
[2024-04-27] MEDS: 0.9 % SODIUM CHLORIDE 250 ml IV (11:39)
[2024-04-27] MEDS: ERTAPENEM 1 GM in 0.9 % SODIUM CHLORIDE Mini-bag 100 ML IVPB (11:39)
[2024-04-27] MEDS: SODIUM CHLORIDE 0.9 % (FLUSH) 10 ML SYRINGE IVF (11:40)
[2024-04-28 11:26] VITALS: BP 146/99; PULSE 92; RESP 16; TEMP 37; O2SAT 91
[2024-04-28] MEDS: SODIUM CHLORIDE 0.9 % (FLUSH) 10 ML SYRINGE IVF ×2 (11:42→12:18)
[2024-04-28] MEDS: 0.9 % SODIUM CHLORIDE 250 ml IV (11:42)
[2024-04-28] MEDS: ERTAPENEM 1 GM in 0.9 % SODIUM CHLORIDE Mini-bag 100 ML IVPB (11:42)
[2024-04-29 15:00] VITALS: BP 153/71; PULSE 103; RESP 16; TEMP 36.3; O2SAT 96
[2024-04-29] MEDS: ERTAPENEM 1 GM in 0.9 % SODIUM CHLORIDE Mini-bag 100 ML IVPB (15:05)
[2024-04-29] MEDS: SODIUM CHLORIDE 0.9 % (FLUSH) 10 ML SYRINGE IVF ×2 (15:07→15:42)
[2024-04-29] MEDS: 0.9 % SODIUM CHLORIDE 250 ml IV (15:07)
[2024-04-30 12:08] VITALS: BP 140/81; PULSE 84; RESP 16; TEMP 36.5; O2SAT 91
[2024-04-30] MEDS: ERTAPENEM 1 GM in 0.9 % SODIUM CHLORIDE Mini-bag 100 ML IVPB (12:09)
[2024-04-30] MEDS: SODIUM CHLORIDE 0.9 % (FLUSH) 10 ML SYRINGE IVF (12:10)
[2024-05-01] MEDS: ERTAPENEM 1 GM in 0.9 % SODIUM CHLORIDE Mini-bag 100 ML IVPB (11:13)
--- NOTE | 2024-05-01 11:45 | PC.NURSE ---
The patient presented to the floor for OP ABX infusion PICC cap was changed and ABX infused with no issues. On the PICC dressing it is labeled 04/27/24 when it was changed, and the patient also reported it got changed on Friday. But no records were found in the chart of a dressing change.
[2024-05-02] MEDS: 0.9 % SODIUM CHLORIDE 250 ml IV (11:07)
[2024-05-02] MEDS: SODIUM CHLORIDE 0.9 % (FLUSH) 10 ML SYRINGE IVF (11:08)
[2024-05-02] MEDS: ERTAPENEM 1 GM in 0.9 % SODIUM CHLORIDE Mini-bag 100 ML IVPB (11:08)
[2024-05-02 11:19] VITALS: BP 143/88; PULSE 93; RESP 16; TEMP 36.5; O2SAT 94
[2024-05-03 11:17] VITALS: BP 101/71; PULSE 101; RESP 16; TEMP 35.8; O2SAT 92
[2024-05-03] MEDS: ERTAPENEM 1 GM in 0.9 % SODIUM CHLORIDE Mini-bag 100 ML IVPB (11:36)
[2024-05-03] MEDS: 0.9 % SODIUM CHLORIDE 250 ml IV (11:37)
[2024-05-03] MEDS: SODIUM CHLORIDE 0.9 % (FLUSH) 10 ML SYRINGE IVF (11:37)
[2024-05-04 11:44] VITALS: BP 77/59; PULSE 105; RESP 16; TEMP 36.6; O2SAT 91
[2024-05-04 11:59] VITALS: BP 120/82; PULSE 104
[2024-05-04] MEDS: ERTAPENEM 1 GM in 0.9 % SODIUM CHLORIDE Mini-bag 100 ML IVPB (12:05)
[2024-05-04] MEDS: SODIUM CHLORIDE 0.9 % (FLUSH) 10 ML SYRINGE IVF (12:06)
[2024-05-05 11:22] VITALS: BP 101/68; PULSE 95; RESP 16; TEMP 36.7; O2SAT 95
[2024-05-05] MEDS: SODIUM CHLORIDE 0.9 % (FLUSH) 10 ML SYRINGE IVF (11:30)
[2024-05-05] MEDS: 0.9 % SODIUM CHLORIDE 250 ml IV (11:31)
[2024-05-05] MEDS: ERTAPENEM 1 GM in 0.9 % SODIUM CHLORIDE Mini-bag 100 ML IVPB (11:33)
[2024-05-06 11:30] VITALS: BP 123/67; PULSE 106; RESP 16; TEMP 36.5; O2SAT 92
[2024-05-06] MEDS: ALTEPLASE 2 MG INJ IVF (12:01)
[2024-05-06] MEDS: ERTAPENEM 1 GM in 0.9 % SODIUM CHLORIDE Mini-bag 100 ML IVPB (12:12)
--- NOTE | 2024-05-06 16:24 | ONC.NURNOTE ---
Cathflo x 1 for 75 min. Able to withdraw TPA; blood return after flushing.
[2024-05-07 11:40] VITALS: BP 140/70; PULSE 100; RESP 16; TEMP 35.7; O2SAT 96
[2024-05-07] MEDS: SODIUM CHLORIDE 0.9 % (FLUSH) 10 ML SYRINGE IVF ×2 (11:57→12:42)
[2024-05-07] MEDS: 0.9 % SODIUM CHLORIDE 250 ml IV ×2 (11:57→11:58)
[2024-05-07] MEDS: ERTAPENEM 1 GM in 0.9 % SODIUM CHLORIDE Mini-bag 100 ML IVPB (12:01)
[2024-05-08] MEDS: ERTAPENEM 1 GM in 0.9 % SODIUM CHLORIDE Mini-bag 100 ML IVPB (11:46)
[2024-05-08] MEDS: SODIUM CHLORIDE 0.9 % (FLUSH) 10 ML SYRINGE IVF (11:47)
[2024-05-08] MEDS: 0.9 % SODIUM CHLORIDE 250 ml IV (11:47)
[2024-05-08 11:58] VITALS: BP 138/69; PULSE 97; RESP 18; TEMP 36.3; O2SAT 98
--- NOTE | 2024-05-08 12:29 | PC.NURSE ---
Infusion into Left upper arm PICC infused without complications or complaint.
[2024-05-09] MEDS: ERTAPENEM 1 GM in 0.9 % SODIUM CHLORIDE Mini-bag 100 ML IVPB (11:48)
[2024-05-09] MEDS: SODIUM CHLORIDE 0.9 % (FLUSH) 10 ML SYRINGE IVF (11:50)
[2024-05-09] MEDS: 0.9 % SODIUM CHLORIDE 250 ml IV (11:51)
[2024-05-10 11:25] VITALS: BP 122/81; PULSE 98; RESP 18; TEMP 36; O2SAT 96
[2024-05-10] MEDS: ERTAPENEM 1 GM in 0.9 % SODIUM CHLORIDE Mini-bag 100 ML IVPB (11:36)
[2024-05-10] MEDS: SODIUM CHLORIDE 0.9 % (FLUSH) 10 ML SYRINGE IVF ×2 (11:40→12:15)
--- NOTE | 2024-05-11 13:51 | PC.NURSE ---
Received a call from TATY Hidalgo [facility]. Pt was seen today. They would like the PICC line to stay in and TATY Hidalgo will see her again next week on Friday. Pt will not receive antibiotics for the next week as provider wants to see what it looks like after not having abx. PICC line will stay in, we will change the dressing on of this week. TATY Hidalgo will update [facility] after their visit next Friday re: more abx vs. PICC line removal.
[2024-05-18 10:29] VITALS: BP 119/78; PULSE 110; RESP 24; TEMP 35.8; O2SAT 94
--- NOTE | 2024-05-18 13:33 | ONC.NURNOTE ---
Pt tolerated PICC line removal well without difficulty. Length of catheter same as insertion length. Pt observed for 30 min after removal. Pt discharged alert and ambulatory.
== END 2024-09-30 23:59 | disposition home or self-care (01) ==
LOC: CCIC 10:25
PROVIDERS: Visit Provider Clinical Nurse Specialist
DX: A49.01 Methicillin susceptible Staphylococcus aureus infection, unspecified site (principal); M86.9 Osteomyelitis, unspecified; S91.001A Unspecified open wound, right ankle, initial encounter
CPT/HCPCS: 11042; 36573; 87635; 96365; 96376; 99211; G0463; A4221; C1751; J1335; J2997; J7050

== ENCOUNTER 2024-05-25 09:21 | Outpatient (CLI) | payer OTHER, SELFPAY | END 2024-05-25 09:22 | disposition home or self-care (01) | LOC: WOUND 09:21 | PROVIDERS: Visit Provider Nurse Practitioner Family | DX: E11.622 Type 2 diabetes mellitus with other skin ulcer (principal); L97.318 Non-pressure chronic ulcer of right ankle with other specified severity; Z79.4 Long term (current) use of insulin | CPT/HCPCS: 11042 ==

== ENCOUNTER 2024-06-02 09:44 | Outpatient (CLI) | payer OTHER, SELFPAY | END 2024-06-02 09:45 | disposition home or self-care (01) | LOC: WOUND 09:44 | PROVIDERS: Visit Provider Surgery | DX: E11.622 Type 2 diabetes mellitus with other skin ulcer (principal); L97.311 Non-pressure chronic ulcer of right ankle limited to breakdown of skin; Z79.4 Long term (current) use of insulin; Z79.84 Long term (current) use of oral hypoglycemic drugs | CPT/HCPCS: 97597 ==

== ENCOUNTER 2024-06-08 09:11 | Outpatient (CLI) | payer OTHER, SELFPAY | END 2024-06-08 09:12 | disposition home or self-care (01) | LOC: WOUND 09:11 | PROVIDERS: Visit Provider Nurse Practitioner Family | DX: E11.622 Type 2 diabetes mellitus with other skin ulcer (principal); L97.312 Non-pressure chronic ulcer of right ankle with fat layer exposed; Z79.4 Long term (current) use of insulin | CPT/HCPCS: 97597 ==

== ENCOUNTER 2024-06-22 09:22 | Outpatient (CLI) | payer OTHER, SELFPAY | END 2024-06-22 09:23 | disposition home or self-care (01) | LOC: WOUND 09:22 | PROVIDERS: Visit Provider Family Medicine | DX: T81.31XA Disruption of external operation (surgical) wound, not elsewhere classified, initial encounter (principal); E11.9 Type 2 diabetes mellitus without complications; Z79.4 Long term (current) use of insulin | CPT/HCPCS: G0463 ==